=== PATIENT | female | born 1955 | race Caucasian/White ===

== ENCOUNTER 2017-11-05 01:07 | Inpatient (IN) | payer MEDICARE, OTHER ==
[2017-11-05] MEDS ORDERED: SODIUM CHLORIDE 0.9% 1,000 ML IV ONE (01:24)
[2017-11-05] MEDS ORDERED: HYDROmorphone 0.5 MG/0.5 ML SYRINGE IVP STA (01:24)
[2017-11-05] MEDS ORDERED: ONDANSETRON 4 MG/2 ML VIAL IVP STA (01:25)
[2017-11-05] MEDS ORDERED: ACETAMINOPHEN IV (For NPO) 1,000 MG in EMPTY BAG 1 BAG IVPB STA (01:30)
[2017-11-05] MEDS ORDERED: MORPHINE SULFATE 2 MG/ML SYRINGE IVP STA (01:49)
--- NOTE | 2017-11-05 01:50 | ED ---
Abdominal Pain HPI - General Chief Complaint: Abdominal Pain Stated Complaint: Abdominal Pain Time Seen by Provider: 11/05/17 01:11 Source: patient, EMS Mode of arrival: EMS Limitations: no limitations - History of Present Illness Initial Comments: Years O female transferred here from [facility] with the acute diverticulitis with perforation she presented with a fever off one or 1.8 complaining about abdominal pain she denies any other symptoms no headaches no neck stiffness no chest pain no shortness of breath she had some IV antibiotics at [facility] there was a Levaquin based on her ALLERGIES and now she had a fluid resuscitation as well as I reviewed the labs CBC is unremarkable with a slight elevation of white count compressive metabolic metabolic panel is normal lactate is 2.6 troponin is negative EKG didn't show any STEMI is. - Related Data Allergies Allergy/AdvReac Type Severity Reaction Status Date / Time amoxicillin Allergy Rash/Hives Verified 11/05/17 01:21 clavulanic acid Allergy Dyspnea Verified 11/05/17 01:21 [From Augmentin] latex Allergy Rash/Hives Verified 11/05/17 01:21 metronidazole [From Flagyl] Allergy Itching Verified 11/05/17 01:21 codeine AdvReac Rash/Hives Verified 11/05/17 01:21 Review of Systems ROS Statement: Those systems with pertinent positive or pertinent negative responses have been documented in the HPI. ROS Other: All systems not noted in ROS Statement are negative. Past Medical History Past Medical History: Atrial Fibrillation, Diabetes Mellitus, Hyperlipidemia History of Any Multi-Drug Resistant Organisms: None Reported Past Surgical History: Section, Hysterectomy, Joint Replacement, Orthopedic Surgery Additional Past Surgical History / Comment(s): bilateral knees, bilateral feet, right RC, bilateral carpal tunnel, left trigger finger Past Psychological History: Anxiety Smoking Status: Never smoker Past Alcohol Use History: None Reported Past Drug Use History: None Reported General Exam - General Exam Comments Initial Comments: General: The patient is awake and alert, in great distress, very anxious Skin: Skin is warm and dry and no rashes or lesions are noted. Eye: Pupils are equal, round and reactive to light, extra-ocular movements are intact; there is normal conjunctiva bilaterally. Ears, nose, mouth and throat: There are moist mucous membranes and no oral lesions. Neck: The neck is supple, there is no tenderness or JVD. Cardiovascular: There is a regular rate and rhythm. No murmur, rub or gallop is appreciated. Respiratory: To auscultation bilateral, no wheezing no rhonchi no distress respiratory geller noticed Gastrointestinal: Tender in the left lower quadrant area and tender in epigastric area as well Back: There is no tenderness to palpation in the midline. There is no obvious deformity. Musculoskeletal: Normal ROM, no tenderness, There is no pedal edema. There is no calf tenderness or swelling. No cords were appreciated. Neurological: CN II-XII intact, Cranial nerves III through XII are intact. There are no obvious motor or sensory deficits. Coordination appears grossly intact. Speech is normal. Psychiatric: Cooperative, appropriate mood & affect, normal judgment. Limitations: no limitations Course Vital Signs 11/05/17 11/05/17 11/05/17 01:11 01:50 02:00 Temperature 101.8 F H 101.5 F H 101.5 F H Pulse Rate 105 H 103 H 102 H Respiratory 20 20 18 Rate Blood Pressure 138/63 134/70 129/67 O2 Sat by Pulse 91 L 95 96 Oximetry Labs were reviewed, labs done at the transferring hospital, CBC, CMP are unremarkable lactate is 2.6 troponin is negative EKG was reviewed there was no STEMI. CT of the abdomen showed acute diverticulitis with a few air bubbles in the area., All this situation was discussed with the Dr. Gaona surgeon second ride fare collector today Dr. Martinez him wanted to do some imaging and imaging acute abdominal series has been ordered waiting for the report I will keep Dr. Gaona po service patient is in was about to the patient took her Xaralto yesterday Disposition Clinical Impression: Acute diverticulitis, Perforation bowel Disposition: ADMITTED IP TO THIS HOSP Condition: Good Referrals: Roque Howe MD [Primary Care Provider] - 1-2 days
[2017-11-05] MEDS: SODIUM CHLORIDE 0.9% 1,000 ML IV SCH ×3 (01:55→21:34)
[2017-11-05] MEDS ORDERED: NALOXONE 0.4 MG/ML 1 ML VIAL IV PRN (02:50)
[2017-11-05] MEDS ORDERED: ACETAMINOPHEN SUPPOSITORY 650 MG SUPP RECTAL PRN (02:50)
--- NOTE | 2017-11-05 03:02 | XR ---
EXAMINATION TYPE: XR abdomen acute w cxr DATE OF EXAM: 11/05/2017 COMPARISON: NONE HISTORY: Abdominal pain and fever TECHNIQUE: Chest x-ray and supine and upright abdomen FINDINGS: There is no heart failure nor confluent pneumonic infiltrate. Costophrenic angles are clear. There ar e chest leads. Bowel gas pattern is normal. There is no sign of intestinal obstruction or pneumoperitoneum. There is contrast-filled urinary bladder. There is no evidence of a mass. There are no pathologic calcificati ons over the kidneys. There is dilute contrast in the renal collecting systems. IMPRESSION: No active cardiopulmonary disease. Nonacute abdomen.
[2017-11-05] MEDS ORDERED: MEROPENEM 1 GM in SODIUM CHLORIDE 0.9% 100 ML IVPB STA (03:32)
[2017-11-05] MEDS ORDERED: LORazepam 1 MG TAB PO STA (04:45)
[2017-11-05 05:59] LABS: Glucose,Whole Blood 231 mg/dL (75-99)
[2017-11-05 06:18] VITALS: BMI 37.1
[2017-11-05 06:34] LABS: Anisocytosis Slight; Basophils % (A) 0 %; Eosinophils % (A) 0 %; HCT 32.2 % (34.0-46.0); HGB 9.9 gm/dL (11.4-16.0); Hypochromasia Marked; Lymphocytes # (A) 0.4 k/uL (1.0-4.8); Lymphocytes % (A) 4 %; MCH 20.7 pg (25.0-35.0); MCHC 30.7 g/dL (31.0-37.0); MCV 67.4 fL (80.0-100.0); Mean Platelet Volume 6.3; Microcytosis Marked; Monocytes # (A) 0.2 k/uL (0-1.0); Monocytes % (A) 3 %; Neutrophils # (A) 8.2 k/uL (1.3-7.7); Neutrophils % (A) 93 %; Platelet Count 158 k/uL (150-450); Poikilocytosis Slight; RBC 4.79 m/uL (3.80-5.40); RDW 17.7 % (11.5-15.5); WBC 8.8 k/uL (3.8-10.6)
[2017-11-05 06:56] LABS: Anion Gap 12 mmol/L; Blood Urea Nitrogen 13 mg/dL (7-17); Calcium 8.3 mg/dL (8.4-10.2); Carbon Dioxide 21 mmol/L (22-30); Chloride 108 mmol/L (98-107); Glucose 215 mg/dL (74-99); Magnesium 1.7 mg/dL (1.6-2.3); Phosphorus 3.2 mg/dL (2.5-4.5); Potassium 4.5 mmol/L (3.5-5.1); Sodium 141 mmol/L (137-145)
--- NOTE | 2017-11-05 07:15 | P.GSHP ---
History of Present Illness H&P Date: 11/05/17 Chief Complaint: Diverticulitis Patient transferred from [place] last night. She began experiencing some crampy vague lower abdominal pain on Sunday. Yesterday afternoon the pain became quite a bit more severe and went from 2-10. This is associated with nausea. She had a few loose stools that were nonbloody. Pain is better today down to a 5. She was started on antibiotics. Had an ALLERGIC reaction to Flagyl. CAT scan abdomen and pelvis was reviewed. There is evidence of diverticulitis involving the proximal to mid descending colon with a few small foci of extraluminal air bubbles. There is a small amount of free fluid within the abdomen as well. She was febrile last night at 101. White blood cell count mildly elevated. No tachycardia currently. No history of similar events. White blood cell count this morning normal at 8.8. Hemoglobin 9.9. Lactic acid normal - Review of Systems Comment: The patient denies any acute changes in vision or hearing, no dysphagia or odynophagia, no chest pain or shortness of breath, no dysuria or hematuria, no headache, no runny nose, no rectal bleeding or melena, no unexplained weight loss Past Medical History Past Medical History: Atrial Fibrillation, Diabetes Mellitus, Hyperlipidemia, Sleep Apnea/CPAP/BIPAP History of Any Multi-Drug Resistant Organisms: None Reported Past Surgical History: Section, Hysterectomy, Joint Replacement, Orthopedic Surgery Additional Past Surgical History / Comment(s): bilateral knees, bilateral feet, right RC, bilateral carpal tunnel, left trigger finger Past Anesthesia/Blood Transfusion Reactions: No Reported Reaction Past Psychological History: Anxiety Smoking Status: Former smoker Past Alcohol Use History: None Reported Past Drug Use History: None Reported Medications and Allergies Home Medications Medication Instructions Recorded Confirmed Type ALPRAZolam [Xanax] 0.5 mg PO QID 11/05/17 11/05/17 History Diltiazem HCl [Diltiazem 24Hr ER] 360 mg PO DAILY 11/05/17 11/05/17 History Ferrous Sulfate [Feosol] 325 mg PO PC-SUPPER 11/05/17 11/05/17 History Magnesium 250 mg PO PC-SUPPER 11/05/17 11/05/17 History Potassium Chloride ER [K-Dur 10] 10 meq PO HS 11/05/17 11/05/17 History Rivaroxaban [Xarelto] 20 mg PO PC-SUPPER 11/05/17 11/05/17 History Simvastatin [Zocor] 20 mg PO HS 11/05/17 11/05/17 History Torsemide [Demadex] 20 mg PO PC-SUPPER 11/05/17 11/05/17 History metFORMIN HCL [metFORMIN HCL ER] 1,000 mg PO BID-W/MEALS 11/05/17 11/05/17 History traZODone HCL [TraZODone HCl] 200 mg PO HS 11/05/17 11/05/17 History Allergies Allergy/AdvReac Type Severity Reaction Status Date / Time amoxicillin Allergy Rash/Hives Verified 11/05/17 01:21 clavulanic acid Allergy Dyspnea Verified 11/05/17 01:21 [From Augmentin] latex Allergy Rash/Hives Verified 11/05/17 01:21 metronidazole [From Flagyl] Allergy Itching Verified 11/05/17 01:21 codeine AdvReac Rash/Hives Verified 11/05/17 01:21 Surgical - Exam Vital Signs Temp Pulse Resp BP Pulse Ox 101.8 F H 105 H 20 138/63 91 L 11/05/17 01:11 11/05/17 01:11 11/05/17 01:11 11/05/17 01:11 11/05/17 01:11 Physical exam: General: Well-developed, well-nourished HEENT: Normocephalic, sclerae nonicteric Abdomen: Diffuse abdominal tenderness relatively mild slightly increased in the left midabdomen, nondistended, umbilical hernia noted Extremities: No edema Neuro: Alert and oriented Results - Labs 11/05/17 06:16 11/05/17 06:16 Abnormal Lab Results - Last 24 Hours (Table) 11/05/17 11/05/17 11/05/17 Range/Units 05:59 06:16 06:16 Hgb 9.9 L (11.4-16.0) gm/dL Hct 32.2 L (34.0-46.0) % MCV 67.4 L (80.0-100.0) fL MCH 20.7 L (25.0-35.0) pg MCHC 30.7 L (31.0-37.0) g/dL RDW 17.7 H (11.5-15.5) % Neutrophils # 8.2 H (1.3-7.7) k/uL Lymphocytes # 0.4 L (1.0-4.8) k/uL Chloride 108 H (98-107) mmol/L Carbon Dioxide 21 L (22-30) mmol/L Glucose 215 H (74-99) mg/dL POC Glucose (mg/dL) 231 H (75-99) mg/dL Calcium 8.3 L (8.4-10.2) mg/dL Diabetes panel 11/05/17 Range/Units 06:16 Sodium 141 (137-145) mmol/L Potassium 4.5 (3.5-5.1) mmol/L Chloride 108 H (98-107) mmol/L Carbon Dioxide 21 L (22-30) mmol/L BUN 13 (7-17) mg/dL Creatinine 0.80 (0.52-1.04) mg/dL Glucose 215 H (74-99) mg/dL Calcium 8.3 L (8.4-10.2) mg/dL Calcium panel 11/05/17 Range/Units 06:16 Calcium 8.3 L (8.4-10.2) mg/dL Phosphorus 3.2 (2.5-4.5) mg/dL Pituitary panel 11/05/17 Range/Units 06:16 Sodium 141 (137-145) mmol/L Potassium 4.5 (3.5-5.1) mmol/L Chloride 108 H (98-107) mmol/L Carbon Dioxide 21 L (22-30) mmol/L BUN 13 (7-17) mg/dL Creatinine 0.80 (0.52-1.04) mg/dL Glucose 215 H (74-99) mg/dL Calcium 8.3 L (8.4-10.2) mg/dL Adrenal panel 11/05/17 Range/Units 06:16 Sodium 141 (137-145) mmol/L Potassium 4.5 (3.5-5.1) mmol/L Chloride 108 H (98-107) mmol/L Carbon Dioxide 21 L (22-30) mmol/L BUN 13 (7-17) mg/dL Creatinine 0.80 (0.52-1.04) mg/dL Glucose 215 H (74-99) mg/dL Calcium 8.3 L (8.4-10.2) mg/dL Assessment and Plan (1) Acute diverticulitis Narrative/Plan: Patient's physical exam findings and CAT scan films consistent with an episode of diverticulitis that can be managed nonoperatively at this time. Continue broad-spectrum antibiotics. Await consults to infectious disease, critical care , and hospitalists. Keep nothing by mouth except for ice chips and popsicles for now. Repeat labs tomorrow. We'll follow closely. Current Visit: Yes Status: Acute Code(s): K57.92 - DVTRCLI OF INTEST, PART UNSP, W/O PERF OR ABSCESS W/O BLEED SNOMED Code(s): 751622069
[2017-11-05] MEDS: PANTOPRAZOLE 40 MG/10 ML VIAL IV SCH (08:08)
[2017-11-05] MEDS: HEPARIN SODIUM,PORCINE 5,000 UNIT/ML 1 ML VIAL SQ SCH ×3 (08:08→23:55)
[2017-11-05] MEDS: FAMOTIDINE 20 MG/2 ML VIAL IV SCH ×2 (08:08→21:34)
[2017-11-05] MEDS: INSULIN ASPART 100 UNIT/ML 1 ML 10 ML VIAL SQ SCH ×4 (08:10→21:33)
[2017-11-05 08:11] LABS: Glucose,Whole Blood 241 mg/dL (75-99)
[2017-11-05] MEDS: MORPHINE SULFATE 2 MG/ML SYRINGE IV PRN ×4 (09:09→21:20)
--- NOTE | 2017-11-05 10:07 | P.CNPUL ---
History of Present Illness Consult date: 11/05/17 Reason for consult: other Chief complaint: Abdominal pain, diverticulitis History of present illness: Pulmonary consult dated 11/05/2017 A 62-year-old female who was transferred out from [place]. She resides up in [place]. She apparently presented with abdominal pain and possible perforation. She's feeling much better now. Apparently she was seen by the surgeon and the surgeon thought she could move out of the ICU. She denies all other complaints other than abdominal pain. The patient apparently has a history of atrial fibrillation, diabetes, and hyperlipidemia. She's also had section hysterectomy joint replacement orthopedic procedures carpal tunnel and trigger finger. She does have a history of anxiety. She was a former smoker. She's been stable here in the intensive care unit from the respiratory status and hemodynamic status. She was transferred from [place] to the emergency room and up to the ICU. She was admitted on November 05. He is currently on O2 2 L by nasal cannula and a saline IV at 100 cc per hour. White count is 8.8 hemoglobin 9.9 hematocrit 32.2 and platelet count was normal. Sodium and potassium are normal. Chloride 108 CO2 21 and anion gap is normal at 12 noon and creatinine were 13 and 0.8. Acute abdominal series was essentially normal both in the area of the chest and abdomen. Review of Systems A 12 point review of systems is positive for abdominal pain, which is improved. The abdominal pain was primarily right lower quadrant. Past Medical History Past Medical History: Atrial Fibrillation, Diabetes Mellitus, Hyperlipidemia, Sleep Apnea/CPAP/BIPAP History of Any Multi-Drug Resistant Organisms: None Reported Past Surgical History: Section, Hysterectomy, Joint Replacement, Orthopedic Surgery Additional Past Surgical History / Comment(s): bilateral knees, bilateral feet, right RC, bilateral carpal tunnel, left trigger finger Past Anesthesia/Blood Transfusion Reactions: No Reported Reaction Past Psychological History: Anxiety Smoking Status: Former smoker Past Alcohol Use History: None Reported Past Drug Use History: None Reported Medications and Allergies Home Medications Medication Instructions Recorded Confirmed Type ALPRAZolam [Xanax] 0.5 mg PO QID 11/05/17 11/05/17 History Diltiazem HCl [Diltiazem 24Hr ER] 360 mg PO DAILY 11/05/17 11/05/17 History Ferrous Sulfate [Feosol] 325 mg PO PC-SUPPER 11/05/17 11/05/17 History Magnesium 250 mg PO PC-SUPPER 11/05/17 11/05/17 History Potassium Chloride ER [K-Dur 10] 10 meq PO HS 11/05/17 11/05/17 History Rivaroxaban [Xarelto] 20 mg PO PC-SUPPER 11/05/17 11/05/17 History Simvastatin [Zocor] 20 mg PO HS 11/05/17 11/05/17 History Torsemide [Demadex] 20 mg PO PC-SUPPER 11/05/17 11/05/17 History metFORMIN HCL [metFORMIN HCL ER] 1,000 mg PO BID-W/MEALS 11/05/17 11/05/17 History traZODone HCL [TraZODone HCl] 200 mg PO HS 11/05/17 11/05/17 History Allergies Allergy/AdvReac Type Severity Reaction Status Date / Time amoxicillin Allergy Rash/Hives Verified 11/05/17 01:21 clavulanic acid Allergy Dyspnea Verified 11/05/17 01:21 [From Augmentin] latex Allergy Rash/Hives Verified 11/05/17 01:21 metronidazole [From Flagyl] Allergy Itching Verified 11/05/17 01:21 codeine AdvReac Rash/Hives Verified 11/05/17 01:21 Physical Exam Osteopathic Statement: *. No significant issues noted on an osteopathic structural exam other than those noted in the History and Physical/Consult. Vitals: Vital Signs Temp Pulse Pulse Resp BP BP Pulse Ox 11/05/17 09:00 84 18 111/58 96 11/05/17 08:00 97.8 F 80 18 109/63 94 L 11/05/17 07:00 78 20 115/63 94 L 11/05/17 06:19 97.7 F 75 75 16 113/65 113/65 94 L 11/05/17 05:33 9707 F H 78 22 126/58 97 11/05/17 04:17 100.0 F H 87 22 139/64 96 11/05/17 03:23 99.5 F 93 19 138/61 96 11/05/17 02:00 101.5 F H 102 H 18 129/67 96 11/05/17 01:50 101.5 F H 103 H 20 134/70 95 11/05/17 01:11 101.8 F H 105 H 20 138/63 91 L Intake and Output 11/04/17 11/05/17 11/05/17 22:59 06:59 14:59 Intake Total 100 300 Output Total 300 Balance 100 0 Intake: IV 100 300 Sodium Chloride 0.9% 1, 100 300 000 ml @ 100 mls/hr IV . Q10H [facility] Rx#:[id number] Output: Urine 300 Other: Voiding Method Bedside Commode Weight 95.2 kg No acute distress, oriented 3. Nasal O2 in place. HEENT examination is grossly unremarkable. Mucous membranes are moist. No oral lesions. Neck supple. Full range of motion. No adenopathy thyromegaly or neck vein distention. Cardiovascular examination reveals regular rhythm rate. S1-S2 normal. No S3 or S4. No discernible murmur noted. Lungs reveal clear breath sounds. Her sounds are equal bilaterally. No adventitious lung sounds including wheezes rhonchi or crackles. Abdomen is relatively soft. Tenderness on palpation in the right lower quadrant. Mild abdominal distention. No masses. Extremities are intact. No cyanosis clubbing or edema. Skin is without rash or lesion. Neurologic examination is brief but nonfocal. Results - Laboratory Findings CBC and BMP: 11/05/17 06:16 11/05/17 06:16 Abnormal lab findings: Abnormal Labs 11/05/17 11/05/17 11/05/17 05:59 06:16 06:16 Hgb 9.9 L Hct 32.2 L MCV 67.4 L MCH 20.7 L MCHC 30.7 L RDW 17.7 H Neutrophils # 8.2 H Lymphocytes # 0.4 L Chloride 108 H Carbon Dioxide 21 L Glucose 215 H POC Glucose (mg/dL) 231 H Calcium 8.3 L 11/05/17 08:10 Hgb Hct MCV MCH MCHC RDW Neutrophils # Lymphocytes # Chloride Carbon Dioxide Glucose POC Glucose (mg/dL) 241 H Calcium - Diagnostic Findings Chest x-ray: report reviewed (Labs x-rays a medications are reviewed.), image reviewed Assessment and Plan Assessment: Assessment Acute diverticulitis History of atrial fibrillation History of diabetes mellitus History of hyperlipidemia Multiple orthopedic procedures History of anxiety Plan: Plan dated 11/05/2017 The patient's doing well. The patient's labs and x-rays are reviewed. Medications are reviewed. The patient can be transferred out to the general medical floor. She was seen and cleared by surgery. No additional recommendations are made. Time spent with patient more than 30 minutes. Time with Patient: Greater than 30
[2017-11-05] MEDS: MEROPENEM 1 GM in SODIUM CHLORIDE 0.9% 100 ML IVPB SCH ×3 (12:15→23:55)
[2017-11-05 12:20] LABS: Glucose,Whole Blood 266 mg/dL (75-99)
--- NOTE | 2017-11-05 12:38 | P.HPIM ---
History of Present Illness H&P Date: 11/05/17 Chief Complaint: Acute diverticulitis with possible perforation A 62-year-old female who was transferred out from [place]. She resides up in [place]. She apparently presented with abdominal pain and possible perforation. She's feeling much better now. Apparently she was seen by the surgeon and the surgeon thought she could move out of the ICU. She denies all other complaints other than abdominal pain. The patient apparently has a history of atrial fibrillation, diabetes, and hyperlipidemia. She's also had section hysterectomy joint replacement orthopedic procedures carpal tunnel and trigger finger. She does have a history of anxiety. She was a former smoker. She's been stable here in the intensive care unit from the respiratory status and hemodynamic status. She was transferred from [place] to the emergency room and up to the ICU. Review of Systems Constitutional: Reports chills, Reports fever, Denies night sweats Eyes: denies blurred vision, denies diplopia Ears, nose, mouth and throat: Denies dysphagia, Denies hoarseness, Denies nasal congestion Cardiovascular: Denies chest pain, Denies irregular heart beat, Denies shortness of breath Respiratory: Denies cough with sputum, Denies wheezing Gastrointestinal: Reports abdominal pain, Reports nausea, Denies constipation, Denies diarrhea, Denies vomiting Genitourinary: Denies dysuria, Denies hematuria, Denies nocturia Musculoskeletal: Denies frequent falls, Denies morning stiffness, Denies muscle cramps Neurological: Denies confusion, Denies double vision, Denies gait dysfunction, Denies numbness, Denies paresthesias, Denies weakness Psychiatric: Denies anxiety, Denies confusion Endocrine: Denies cold intolerance, Denies heat intolerance, Denies nocturia, Denies polydipsia, Denies polyuria Past Medical History Past Medical History: Atrial Fibrillation, Diabetes Mellitus, Hyperlipidemia, Sleep Apnea/CPAP/BIPAP History of Any Multi-Drug Resistant Organisms: None Reported Past Surgical History: Section, Hysterectomy, Joint Replacement, Orthopedic Surgery Additional Past Surgical History / Comment(s): bilateral knees, bilateral feet, right RC, bilateral carpal tunnel, left trigger finger Past Anesthesia/Blood Transfusion Reactions: No Reported Reaction Past Psychological History: Anxiety Smoking Status: Former smoker Past Alcohol Use History: None Reported Past Drug Use History: None Reported Medications and Allergies Home Medications Medication Instructions Recorded Confirmed Type ALPRAZolam [Xanax] 0.5 mg PO TID 11/05/17 11/05/17 History Diltiazem HCl [Diltiazem 24Hr ER] 360 mg PO DAILY 11/05/17 11/05/17 History Ferrous Sulfate [Feosol] 325 mg PO PC-SUPPER 11/05/17 11/05/17 History Magnesium 250 mg PO PC-SUPPER 11/05/17 11/05/17 History Potassium Chloride ER [K-Dur 10] 10 meq PO HS 11/05/17 11/05/17 History Rivaroxaban [Xarelto] 20 mg PO PC-SUPPER 11/05/17 11/05/17 History Simvastatin [Zocor] 20 mg PO HS 11/05/17 11/05/17 History Torsemide [Demadex] 20 mg PO PC-SUPPER 11/05/17 11/05/17 History metFORMIN HCL [metFORMIN HCL ER] 1,000 mg PO BID-W/MEALS 11/05/17 11/05/17 History traZODone HCL 200 mg PO HS 11/05/17 11/05/17 History Allergies Allergy/AdvReac Type Severity Reaction Status Date / Time amoxicillin Allergy Rash/Hives Verified 11/05/17 01:21 clavulanic acid Allergy Dyspnea Verified 11/05/17 01:21 [From Augmentin] latex Allergy Rash/Hives Verified 11/05/17 01:21 metronidazole [From Flagyl] Allergy Itching Verified 11/05/17 01:21 codeine AdvReac Rash/Hives Verified 11/05/17 01:21 Physical Exam Vitals: Vital Signs Temp Pulse Pulse Resp BP BP Pulse Ox 11/05/17 09:00 84 18 111/58 96 11/05/17 08:00 97.8 F 80 18 109/63 94 L 11/05/17 07:00 78 20 115/63 94 L 11/05/17 06:19 97.7 F 75 75 16 113/65 113/65 94 L 11/05/17 05:33 9707 F H 78 22 126/58 97 11/05/17 04:17 100.0 F H 87 22 139/64 96 11/05/17 03:23 99.5 F 93 19 138/61 96 11/05/17 02:00 101.5 F H 102 H 18 129/67 96 11/05/17 01:50 101.5 F H 103 H 20 134/70 95 11/05/17 01:11 101.8 F H 105 H 20 138/63 91 L Intake and Output 11/04/17 11/05/17 11/05/17 22:59 06:59 14:59 Intake Total 100 300 Output Total 300 Balance 100 0 Intake: IV 100 300 Sodium Chloride 0.9% 1, 100 300 000 ml @ 100 mls/hr IV . Q10H [facility] Rx#:[id number] Output: Urine 300 Other: Voiding Method Bedside Commode Weight 95.2 kg - Constitutional General appearance: Present: average body habitus, cooperative, no acute distress - EENT Eyes: Present: anicteric sclerae, EOMI, PERRLA, normal appearance ENT: Present: hearing grossly normal, normal oropharynx Ears: bilateral: normal - Neck Neck: Present: normal ROM. Absent: lymphadenopathy, rigidity, thyromegaly Carotids: negative: bruit present Thyroid: bilateral: normal size, negative: enlarged, nodule - Respiratory Respiratory: bilateral: CTA, negative: rales, rhonchi, wheezing - Cardiovascular Rhythm: regular Heart sounds: normal: S1, S2 Abnormal Heart Sounds: Absent: systolic murmur, diastolic murmur - Gastrointestinal General gastrointestinal: Present: normal bowel sounds, soft. Patient does have mild diffuse abdominal tenderness more so in right lower quadrant with minimal distention - Genitourinary Genitourinary Comment(s): deferred - Integumentary Integumentary: Present: normal turgor. Absent: jaundiced, rash, ulcer - Neurologic Neurologic: Present: CNII-XII intact. Absent: focal deficits - Musculoskeletal Musculoskeletal: Present: gait normal, strength equal bilaterally - Psychiatric Psychiatric: Present: A&O x's 3, appropriate affect, intact judgment & insight Results CBC & Chem 7: 11/05/17 06:16 11/05/17 06:16 Labs: Abnormal Lab Results - Last 24 Hours (Table) 11/05/17 11/05/17 11/05/17 Range/Units 05:59 06:16 06:16 Hgb 9.9 L (11.4-16.0) gm/dL Hct 32.2 L (34.0-46.0) % MCV 67.4 L (80.0-100.0) fL MCH 20.7 L (25.0-35.0) pg MCHC 30.7 L (31.0-37.0) g/dL RDW 17.7 H (11.5-15.5) % Neutrophils # 8.2 H (1.3-7.7) k/uL Lymphocytes # 0.4 L (1.0-4.8) k/uL Chloride 108 H (98-107) mmol/L Carbon Dioxide 21 L (22-30) mmol/L Glucose 215 H (74-99) mg/dL POC Glucose (mg/dL) 231 H (75-99) mg/dL Calcium 8.3 L (8.4-10.2) mg/dL 11/05/17 Range/Units 08:10 Hgb (11.4-16.0) gm/dL Hct (34.0-46.0) % MCV (80.0-100.0) fL MCH (25.0-35.0) pg MCHC (31.0-37.0) g/dL RDW (11.5-15.5) % Neutrophils # (1.3-7.7) k/uL Lymphocytes # (1.0-4.8) k/uL Chloride (98-107) mmol/L Carbon Dioxide (22-30) mmol/L Glucose (74-99) mg/dL POC Glucose (mg/dL) 241 H (75-99) mg/dL Calcium (8.4-10.2) mg/dL Thrombosis Risk Factor Assmnt - Choose All That Apply Any of the Below Risk Factors Present?: No Each Risk Factor Represents 2 Points: Age 61-74 years Other congenital or acquired thrombophilia - If yes, enter type in comment: No Thrombosis Risk Factor Assessment Total Risk Factor Score: 2 Thrombosis Risk Factor Assessment Level: Low Risk Assessment and Plan Assessment: 1. Acute diverticulitis with possible perforation - Patient was initially admitted to ICU for possible bowel perforation - Surgery and intensive care consultation is done - Patient was seen and evaluated by surgical team and bowel perforation is ruled out and has been cleared for possible transfer to general medical floor - Patient remains nothing by mouth for now except for ice chips and popsicles - We will hold off on oral medications 2. Hyperglycemia without acidosis/diabetes mellitus2 - Patient is on metformin at home; we will hold off while patient is in the hospital - We will continue with Accu-Cheks with insulin sliding scale protocol 3. Anemia; possibly chronic - We will monitor H&H closely along with stool occult blood and serum iron studies - We will transfuse if hemoglobin drops below 7 - Patient remains on Pepcid 20 mg IV daily for GI prophylaxis versus GI bleed 4. Chronic atrial fibrillation; rate controlled - Patient remains on Cardizem 360 mg daily along with anticoagulation with Xarelto 20 mg daily at bedtime 5. Sleep apnea; CPAP at home 6. Hyperlipidemia; patient's takes simvastatin at home; we will continue to hold his oral intake is established 7. DVT prophylaxis; heparin 5000 units subcu every 8 hours CODE STATUS; full code Time with Patient: Greater than 30
[2017-11-05 16:05] LABS: Glucose,Whole Blood 175 mg/dL (75-99)
[2017-11-05 18:35] LABS: Iron Saturation 18.09 (12.00-45.00)
[2017-11-05 21:32] LABS: Glucose,Whole Blood 89 mg/dL (75-99)
[2017-11-05] MEDS: traZODone HCL 100 MG TAB PO SCH (21:43)
[2017-11-05] MEDS: POTASSIUM CHLORIDE ER 10 MEQ TAB.ER.PRT PO SCH (21:43)
[2017-11-05] MEDS: ATORVASTATIN 10 MG TAB PO SCH (21:44)
[2017-11-05] MEDS: ALPRAZolam 0.5 MG TAB PO SCH (22:49)
[2017-11-05 23:26] LABS: Appearance,Urine Clear (Clear); Bilirubin,Urine Negative (Negative); Blood,Urine Negative (Negative); Color,Urine Yellow; Glucose,Urine (UA) Negative (Negative); Ketones,Urine Trace (Negative); Leukocyte Esterase,Urine Negative (Negative); Nitrite,Urine Negative (Negative); Protein,Urine Negative (Negative); Specific Gravity,Urine 1.012 (1.001-1.035); Urobilinogen,Urine <2.0 mg/dL (<2.0)
[2017-11-06] MEDS: MORPHINE SULFATE 2 MG/ML SYRINGE IV PRN ×4 (01:40→22:03)
[2017-11-06 07:07] LABS: Glucose,Whole Blood 88 mg/dL (75-99)
--- NOTE | 2017-11-06 07:45 | CONS ---
CONSULTATION DATE OF SERVICE: 11/05/2017 REASON FOR CONSULTATION: Acute mild diverticulitis with multiple antibiotic allergy. HISTORY OF PRESENT ILLNESS: The patient is a 62-year-old, female, who started having pain in the abdominal area for about 2 days. The pain has been mostly in the left lower abdominal area, more of a dull aching pain at times sharp that has gradually increased in severity and intensity to be almost 10 out of 10. The patient has felt nauseated, but no vomiting. The patient did have a bowel movement and thought the pain was improved after the bowel movement. However, the patient's pain continued to get worse for which the patient presented to the [facility] where the patient did have a CT of the abdomen and pelvis which did show diverticulosis involving the proximal to mid descending colon with small foci of extraluminal air bubbles. The patient did have fever of 101 degrees Fahrenheit at that facility. She was given IV antibiotic when she was infusing Flagyl, the patient states she did have itching around the IV site and this area becomes swollen, but no further itching was noticed or any rash or any difficulty in breathing, that was documented as possible allergic reaction. She did subsequently receive a dose of meropenem and was transferred to the ICU at the [facility]. Infectious Disease was consulted for further recommendation regarding antibiotic therapy. REVIEW OF SYSTEMS: CONSTITUTIONAL: Positive for weakness and fever. EYES: No complaint. ENT: No complaint. RESPIRATORY: No complaint. CARDIOVASCULAR: No complaint. GENITOURINARY: No complaint. GASTROINTESTINAL: As per HPI. MUSCULOSKELETAL: No complaints. INTEGUMENTARY: No complaint. PSYCHOLOGICAL: No complaint. ENDOCRINE: No complaint. NEUROLOGIC: No complaint. PAST MEDICAL HISTORY: Significant for atrial fibrillation, diabetes mellitus, hyperlipidemia, sleep apnea. PAST SURGICAL HISTORY: , hysterectomy, bilateral carpal tunnel release, left trigger finger release, bilateral knees. SOCIAL HISTORY: Denies smoking, drinking or any drug use. FAMILY HISTORY: No pertinent findings noticed. ALLERGIES: Allergies to AUGMENTIN with a rash, FLAGYL seem more of a local infiltration rather than a true allergy to me. MEDICATIONS: Medications currently include the patient is on Tylenol, Xanax, Lipitor, Cardizem, Pepcid, iron sulfate, heparin, NovoLog, meropenem, Narcan, Protonix, Demadex and Desyrel. PHYSICAL EXAMINATION: On examination, her blood pressure is 107/55 with a pulse of 66, temperature 97.9, T- max is 101.8. She is 95% on room air. General description is a middle-aged female lying in bed in no distress. No tachypnea or accessory muscle for respiration use. HEENT examination shows slight pallor. No scleral icterus. Oral mucous membrane is dry. No pharyngeal erythema or thrush. NECK: Trachea central. No thyromegaly. LUNGS: Unlabored breathing, clear to auscultation anteriorly. No wheeze or crackle. HEART: S1, S2. Regular rate and rhythm. ABDOMEN: Soft, mild tenderness in the left lower quadrant area. No guarding or rigidity. No organomegaly. EXTREMITIES: No edema of feet. SKIN EXAMINATION: No rash or mass palpable. NEUROLOGICAL: Patient is awake, alert, oriented x3. Mood and affect normal. LABS: Hemoglobin is 9.9 with white count of 8.8. BUN of 13, creatinine 0.80. DIAGNOSTIC IMPRESSION AND PLAN: 1. Patient with acute diverticulitis with microperforation in a patient who did have a fever of 101.8 degrees Fahrenheit. The likely organism to gram negative both aerobes and anaerobes. 2. The patient known to have AMOXICILLIN allergy that will limit number of antibiotics that would be safe to use; no history of anaphylaxis with AMOXICILLIN. The reaction to FLAGYL during this time with the patient looks like more local infiltration rather than a true allergy. PLAN: 1. We will keep the patient on meropenem 1 gram q.8 hours for now while waiting for the condition to stabilized. If the patient continues to improve, may transition her to oral and if the patient tolerates may be able to finish therapy with those antibiotics. 2. We will follow up on the clinical condition to further adjust her medication if needed. Thank you for this consultation. Will follow this patient along with you. MMODL / IJN: [id number] /
[2017-11-06 07:49] LABS: Anisocytosis Slight; Basophils % (A) 0 %; Eosinophils % (A) 0 %; HGB 8.7 gm/dL (11.4-16.0); Hypochromasia Marked; Lymphocytes # (A) 0.8 k/uL (1.0-4.8); Lymphocytes % (A) 10 %; MCH 20.1 pg (25.0-35.0); MCHC 29.9 g/dL (31.0-37.0); MCV 67.2 fL (80.0-100.0); Mean Platelet Volume 6.7; Microcytosis Marked; Monocytes # (A) 0.3 k/uL (0-1.0); Monocytes % (A) 4 %; Neutrophils # (A) 6.5 k/uL (1.3-7.7); Neutrophils % (A) 86 %; Platelet Count 172 k/uL (150-450); Poikilocytosis Slight; RBC 4.32 m/uL (3.80-5.40); RDW 17.5 % (11.5-15.5); WBC 7.6 k/uL (3.8-10.6)
[2017-11-06] MEDS: INSULIN ASPART 100 UNIT/ML 1 ML 10 ML VIAL SQ SCH ×4 (07:51→21:16)
[2017-11-06 08:14] LABS: ALT 25 U/L (9-52); AST 20 U/L (14-36); Albumin 2.9 g/dL (3.5-5.0); Alkaline Phosphatase 47 U/L (38-126); Anion Gap 10 mmol/L; Blood Urea Nitrogen 13 mg/dL (7-17); Calcium 8.7 mg/dL (8.4-10.2); Carbon Dioxide 23 mmol/L (22-30); Chloride 109 mmol/L (98-107); Glucose 84 mg/dL (74-99); Phosphorus 2.5 mg/dL (2.5-4.5); Potassium 4.3 mmol/L (3.5-5.1); Sodium 142 mmol/L (137-145); Total Bilirubin 0.6 mg/dL (0.2-1.3); Total Protein 5.5 g/dL (6.3-8.2)
[2017-11-06] MEDS: ALPRAZolam 0.5 MG TAB PO SCH ×3 (09:40→21:27)
[2017-11-06] MEDS: HEPARIN SODIUM,PORCINE 5,000 UNIT/ML 1 ML VIAL SQ SCH ×3 (09:41→23:38)
[2017-11-06] MEDS: SODIUM CHLORIDE 0.9% 1,000 ML IV SCH ×2 (09:44→21:27)
[2017-11-06] MEDS: FAMOTIDINE 20 MG/2 ML VIAL IV SCH (10:23)
[2017-11-06] MEDS: MEROPENEM 1 GM in SODIUM CHLORIDE 0.9% 100 ML IVPB SCH ×3 (10:23→23:38)
[2017-11-06] MEDS: PANTOPRAZOLE 40 MG/10 ML VIAL IV SCH (10:24)
--- NOTE | 2017-11-06 10:25 | P.PN ---
Subjective Progress Note Date: 11/06/17 Principal diagnosis: Diverticulitis Progress note dated 11/06/2017 This is a 62-year-old female that we saw in consultation on November 05. She was transferred down from [facility] with a possible perforation of the diverticuli. She came in with abdominal pain. She had a computed tomography scan of there. It was evaluated here by our surgeon. The patient was thought to primarily have diverticulitis. The patient has no active pulmonary issues. She does have a history of atrial fibrillation diabetes and hyperlipidemia. The patient's doing well otherwise. The patient was in the ICU but transferred out yesterday. No major issues today. No pulmonary issues today. Objective - Vital Signs Vital signs: Vital Signs Temp 98.6 F 11/06/17 07:32 Pulse 95 11/06/17 08:31 Resp 18 11/06/17 07:32 BP 110/68 11/06/17 07:32 Pulse Ox 90 L 11/06/17 07:32 Intake & Output 11/05/17 11/06/17 11/06/17 18:59 06:59 18:59 Intake Total 600 Output Total 600 550 Balance 0 -550 Intake: IV 600 Sodium Chloride 0.9% 1, 600 000 ml @ 100 mls/hr IV . Q10H [facility] Rx#:[id number] Output: Urine 600 550 Other: Voiding Method Bedside Commode Bedside Commode Bedside Commode - Exam No acute distress, oriented 3. HEENT examination is grossly unremarkable. Mucous membranes are moist. No oral lesions. Neck supple. Full range of motion. No adenopathy thyromegaly or neck vein distention. Cardiovascular examination reveals regular rhythm rate. S1-S2 normal. No S3 or S4. No discernible murmur noted. Lungs reveal clear breath sounds. Her sounds are equal bilaterally. No adventitious lung sounds including wheezes rhonchi or crackles. Abdomen is soft, with some mild tenderness diffusely. No masses. Not a surgical abdomen at this time. Bowel sounds are noted. Extremities are intact. No cyanosis clubbing or edema. Skin is without rash or lesion. Neurologic examination is brief but nonfocal. - Labs CBC & Chem 7: 11/06/17 07:17 11/06/17 07:17 Labs: Abnormal Lab Results - Last 24 Hours (Table) 11/05/17 11/05/17 11/05/17 Range/Units 12:18 14:45 16:02 Hgb (11.4-16.0) gm/dL Hct (34.0-46.0) % MCV (80.0-100.0) fL MCH (25.0-35.0) pg MCHC (31.0-37.0) g/dL RDW (11.5-15.5) % Lymphocytes # (1.0-4.8) k/uL Chloride (98-107) mmol/L POC Glucose (mg/dL) 266 H 175 H (75-99) mg/dL Total Protein (6.3-8.2) g/dL Albumin (3.5-5.0) g/dL Urine Ketones Trace H (Negative) 11/06/17 11/06/17 Range/Units 07:17 07:17 Hgb 8.7 L (11.4-16.0) gm/dL Hct 29.0 L (34.0-46.0) % MCV 67.2 L (80.0-100.0) fL MCH 20.1 L (25.0-35.0) pg MCHC 29.9 L (31.0-37.0) g/dL RDW 17.5 H (11.5-15.5) % Lymphocytes # 0.8 L (1.0-4.8) k/uL Chloride 109 H (98-107) mmol/L POC Glucose (mg/dL) (75-99) mg/dL Total Protein 5.5 L (6.3-8.2) g/dL Albumin 2.9 L (3.5-5.0) g/dL Urine Ketones (Negative) Microbiology - Last 24 Hours (Table) 11/05/17 01:40 Blood Culture - Preliminary Blood No Growth after 24 hours Assessment and Plan Assessment: Assessment Acute diverticulitis History of atrial fibrillation History of diabetes mellitus History of hyperlipidemia Multiple orthopedic procedures History of anxiety Plan: Plan dated 11/05/2017 The patient's doing well. The patient's labs and x-rays are reviewed. Medications are reviewed. The patient can be transferred out to the general medical floor. She was seen and cleared by surgery. No additional recommendations are made. Time spent with patient more than 30 minutes. Plan dated 11/06/2017 The patient is doing much better. The patient has no active pulmonary issues. She was in the unit primarily because she was thought to have diverticulitis with sepsis secondary to perforation of the diverticuli. That was not the case. Abdominal pain has improved. No coughing wheezing shortness of breath. No chest pain or chest discomfort. No fever or chills. Respiratory and hemodynamic status is stable. Time with Patient: Less than 30
[2017-11-06 11:56] LABS: Glucose,Whole Blood 101 mg/dL (75-99)
[2017-11-06] MEDS ORDERED: ACETAMINOPHEN IV (For NPO) 1,000 MG in EMPTY BAG 1 BAG IVPB STA (12:35)
--- NOTE | 2017-11-06 12:58 | P.PN ---
<Kathryn Paniaguapetra Powell - Last Filed: 11/06/17 12:20> Subjective Progress Note Date: 11/06/17 62-year-old female evaluated at the bedside patient reports feeling warm feverish chills temp was checked was noted to be 103. Patient states abdominal pain feels better this morning passing gas no stool no nausea no vomiting tolerating a clear liquid diet. abdomen is soft CAT scan of the abdomen pelvis was reviewed it showed small amount of free air within the abdomen.evidence of diverticulitis involving the proximal to mid descending colon abdomen obese mild tenderness to the right lower quadrant patient states radiates across nondistended bowel tones present the white count this morning 7.6 .hemoglobin 8.7sats currently on room air are 90%. Heart rate in the 80s to 90s Objective - Vital Signs Vital signs: Vital Signs Temp 98.6 F 11/06/17 07:32 Pulse 95 11/06/17 08:31 Resp 18 11/06/17 07:32 BP 110/68 11/06/17 07:32 Pulse Ox 90 L 11/06/17 07:32 Intake & Output 11/05/17 11/06/17 11/06/17 18:59 06:59 18:59 Intake Total 600 Output Total 600 550 Balance 0 -550 Intake: IV 600 Sodium Chloride 0.9% 1, 600 000 ml @ 100 mls/hr IV . Q10H [facility] Rx#:[id number] Output: Urine 600 550 Other: Voiding Method Bedside Commode Bedside Commode Bedside Commode - Exam physical exam 62-year-old female sitting up in bed states has mild tenderness to the abdominal wall slight improvement Lungs diminished at the bases no wheezing noted on room air sats are 90% no cough noted Heart S1-S2 audible regular Abdomen obese soft mild tenderness across the lower abdominal wall nondistended bowel tones present states passing gas no stool no nausea no vomiting Extremities no edema noted - Labs CBC & Chem 7: 11/06/17 07:17 11/06/17 07:17 Labs: Abnormal Lab Results - Last 24 Hours (Table) 11/05/17 11/05/17 11/05/17 Range/Units 12:18 14:45 16:02 Hgb (11.4-16.0) gm/dL Hct (34.0-46.0) % MCV (80.0-100.0) fL MCH (25.0-35.0) pg MCHC (31.0-37.0) g/dL RDW (11.5-15.5) % Lymphocytes # (1.0-4.8) k/uL Chloride (98-107) mmol/L POC Glucose (mg/dL) 266 H 175 H (75-99) mg/dL Total Protein (6.3-8.2) g/dL Albumin (3.5-5.0) g/dL Urine Ketones Trace H (Negative) 11/06/17 11/06/17 11/06/17 Range/Units 07:17 07:17 11:55 Hgb 8.7 L (11.4-16.0) gm/dL Hct 29.0 L (34.0-46.0) % MCV 67.2 L (80.0-100.0) fL MCH 20.1 L (25.0-35.0) pg MCHC 29.9 L (31.0-37.0) g/dL RDW 17.5 H (11.5-15.5) % Lymphocytes # 0.8 L (1.0-4.8) k/uL Chloride 109 H (98-107) mmol/L POC Glucose (mg/dL) 101 H (75-99) mg/dL Total Protein 5.5 L (6.3-8.2) g/dL Albumin 2.9 L (3.5-5.0) g/dL Urine Ketones (Negative) Microbiology - Last 24 Hours (Table) 11/05/17 01:40 Blood Culture - Preliminary Blood No Growth after 24 hours Assessment and Plan Assessment: impression present on admission diffuse abdominal pain suspect due to acute diverticulitis with microperforation Computed tomography scan of the abdomen pelvis consistent with the episode of diverticulitis Febrile obesity BMI 37 Multiple antibiotic ALLERGIES chronic atrial fibrillation on Xarelto on hold Sleep apnea with the use of CPAP therapy Plan Continue antibiotics per infectious diseases recommendations meropenem IV fluid as ordered DVT and GI prophylaxis Pain control Further surgical recommendations pending will follow with you Repeat labs in the morning The above impression and plan of care have been discussed and directed by signing physician. Sylvia Paniagua nurse practitioner acting as scribe for signing physician. <Valdemar Gaona - Last Filed: 11/06/17 17:21> Objective - Vital Signs Vital signs: Vital Signs Temp 101.7 F H 11/06/17 13:25 Pulse 110 H 11/06/17 12:15 Resp 18 11/06/17 12:15 BP 121/59 11/06/17 12:15 Pulse Ox 95 11/06/17 12:38 Intake & Output 11/05/17 11/06/17 11/06/17 18:59 06:59 18:59 Intake Total 600 Output Total 600 550 Balance 0 -550 Intake: IV 600 Sodium Chloride 0.9% 1, 600 000 ml @ 100 mls/hr IV . Q10H [facility] Rx#:[id number] Output: Urine 600 550 Other: Voiding Method Bedside Commode Bedside Commode Bedside Commode - Labs CBC & Chem 7: 11/06/17 07:17 11/06/17 07:17 Labs: Abnormal Lab Results - Last 24 Hours (Table) 11/05/17 11/06/17 11/06/17 Range/Units 14:45 07:17 07:17 Hgb 8.7 L (11.4-16.0) gm/dL Hct 29.0 L (34.0-46.0) % MCV 67.2 L (80.0-100.0) fL MCH 20.1 L (25.0-35.0) pg MCHC 29.9 L (31.0-37.0) g/dL RDW 17.5 H (11.5-15.5) % Lymphocytes # 0.8 L (1.0-4.8) k/uL Chloride 109 H (98-107) mmol/L POC Glucose (mg/dL) (75-99) mg/dL Total Protein 5.5 L (6.3-8.2) g/dL Albumin 2.9 L (3.5-5.0) g/dL Urine Ketones Trace H (Negative) 11/06/17 11/06/17 Range/Units 11:55 16:40 Hgb (11.4-16.0) gm/dL Hct (34.0-46.0) % MCV (80.0-100.0) fL MCH (25.0-35.0) pg MCHC (31.0-37.0) g/dL RDW (11.5-15.5) % Lymphocytes # (1.0-4.8) k/uL Chloride (98-107) mmol/L POC Glucose (mg/dL) 101 H 112 H (75-99) mg/dL Total Protein (6.3-8.2) g/dL Albumin (3.5-5.0) g/dL Urine Ketones (Negative) Microbiology - Last 24 Hours (Table) 11/05/17 01:40 Blood Culture - Preliminary Blood No Growth after 24 hours Assessment and Plan Assessment: As above. Patient actually states her pain is improved since yesterday. White blood cell count now normal. She did have a high fever of 102.9. Abdominal examination revealed mild diffuse tenderness increased in the left mid abdomen. Continue liquids only. Continue IV antibiotics per infectious disease. Will follow closely. (1) Acute diverticulitis Current Visit: Yes Status: Acute Code(s): K57.92 - DVTRCLI OF INTEST, PART UNSP, W/O PERF OR ABSCESS W/O BLEED SNOMED Code(s): 426880309
[2017-11-06] MEDS ORDERED: HEPARIN SODIUM,PORCINE 5,000 UNIT/ML 1 ML VIAL ONE (16:00)
[2017-11-06] MEDS ORDERED: ALPRAZolam 0.5 MG TAB ONE (16:00)
[2017-11-06 17:18] LABS: Glucose,Whole Blood 112 mg/dL (75-99)
[2017-11-06] MEDS: FERROUS SULFATE 325 MG TAB PO SCH (17:57)
[2017-11-06] MEDS: TORSEMIDE 20 MG TAB PO SCH (17:57)
[2017-11-06] MEDS: MAGNESIUM OXIDE 400 MG TAB PO SCH (17:58)
[2017-11-06 20:21] LABS: Glucose,Whole Blood 110 mg/dL (75-99)
[2017-11-06] MEDS: traZODone HCL 100 MG TAB PO SCH (21:27)
[2017-11-06] MEDS: ATORVASTATIN 10 MG TAB PO SCH (21:27)
[2017-11-06] MEDS: POTASSIUM CHLORIDE ER 10 MEQ TAB.ER.PRT PO SCH (21:27)
[2017-11-06] MEDS: DILTIAZEM CD 180 MG CAP.ER.24H PO SCH (22:01)
[2017-11-06] MEDS: ACETAMINOPHEN IV (For NPO) 1,000 MG in EMPTY BAG 1 BAG IVPB PRN (22:50)
--- NOTE | 2017-11-06 23:24 | PN ---
PROGRESS NOTE DATE OF SERVICE: 11/06/2017 REASON FOR FOLLOWUP: Diverticulitis with abscess. INTERVAL HISTORY: The patient started having fever again, spiking a fever of 101 degrees Fahrenheit. The patient denies having any chest pain or shortness of breath or cough. No worsening abdominal pain. No nausea, vomiting or any diarrhea. EXAMINATION: Blood pressure 114/67 with a pulse of 90, temperature 91.7. She is 95% on BiPAP. General description is middle-aged female lying in bed in no distress. RESPIRATORY SYSTEM: Unlabored breathing. Clear to auscultation anteriorly. HEART: S1, S2. Regular rate and rhythm. ABDOMEN: Soft. Minimal tenderness. LABS: Hemoglobin 8.7, white count 7.6 with a BUN of 13, creatinine 0.81. Blood culture has been negative so far. DIAGNOSTIC IMPRESSION AND PLAN: Patient admitted to hospital with sepsis versus diverticulitis with microperforation. The patient is currently on meropenem because of her AMOXICILLIN ALLERGY as well as consider for possible Flagyl, which is not a true allergy. In view of the new fever, would recommend obtaining a repeat CT to make sure the patient did not develop any complication or any abscess that may need to be drained further. Blood culture has been repeated. Plan of care will be discussed further with General Surgery. Continue supportive care before ordering the CT. MMODL / IJN: [id number] /
[2017-11-07] MEDS: MORPHINE SULFATE 2 MG/ML SYRINGE IV PRN ×4 (00:36→19:22)
[2017-11-07 06:54] LABS: Anisocytosis Slight; Basophils % (A) 0 %; Eosinophils % (A) 0 %; HCT 29.1 % (34.0-46.0); HGB 8.9 gm/dL (11.4-16.0); Hypochromasia Moderate; Lymphocytes # (A) 0.6 k/uL (1.0-4.8); Lymphocytes % (A) 10 %; MCHC 30.5 g/dL (31.0-37.0); MCV 65.7 fL (80.0-100.0); Mean Platelet Volume 6.5; Microcytosis Marked; Monocytes # (A) 0.3 k/uL (0-1.0); Monocytes % (A) 6 %; Neutrophils # (A) 4.4 k/uL (1.3-7.7); Neutrophils % (A) 82 %; Platelet Count 152 k/uL (150-450); Poikilocytosis Slight; RBC 4.43 m/uL (3.80-5.40); RDW 16.7 % (11.5-15.5); WBC 5.4 k/uL (3.8-10.6)
[2017-11-07 07:02] LABS: Glucose,Whole Blood 104 mg/dL (75-99)
[2017-11-07 07:08] LABS: Calcium 8.1 mg/dL (8.4-10.2); Magnesium 1.8 mg/dL (1.6-2.3); Phosphorus 2.7 mg/dL (2.5-4.5); Potassium 3.4 mmol/L (3.5-5.1)
[2017-11-07] MEDS: MEROPENEM 1 GM in SODIUM CHLORIDE 0.9% 100 ML IVPB SCH ×2 (08:36→15:57)
[2017-11-07] MEDS: ALPRAZolam 0.5 MG TAB PO SCH ×3 (08:37→21:36)
[2017-11-07] MEDS: PANTOPRAZOLE 40 MG/10 ML VIAL IV SCH (08:37)
[2017-11-07] MEDS: HEPARIN SODIUM,PORCINE 5,000 UNIT/ML 1 ML VIAL SQ SCH ×2 (08:37→16:54)
[2017-11-07] MEDS: SODIUM CHLORIDE 0.9% 1,000 ML IV SCH ×2 (08:37→16:04)
[2017-11-07] MEDS: INSULIN ASPART 100 UNIT/ML 1 ML 10 ML VIAL SQ SCH ×4 (08:43→21:36)
--- NOTE | 2017-11-07 09:12 | P.PN ---
Subjective Progress Note Date: 11/07/17 Principal diagnosis: Diverticulitis Patient once again states her pain is improving. Unfortunate she has had intermittent fevers during the day yesterday. Last fever at midnight last night. No tachycardia. Tolerating liquids. Objective - Vital Signs Vital signs: Vital Signs Temp 99.5 F 11/07/17 05:00 Pulse 89 11/07/17 08:30 Resp 17 11/07/17 08:30 BP 110/67 11/07/17 05:00 Pulse Ox 92 L 11/07/17 05:00 Intake & Output 11/06/17 11/07/17 11/07/17 18:59 06:59 18:59 Intake Total 725 1150 Balance 725 1150 Intake: IV 600 1150 Sodium Chloride 0.9% 1, 600 1150 000 ml @ 100 mls/hr IV . Q10H [facility] Rx#:[id number] Intake, IV Titration 125 Amount ACETAMINOPHEN IV (For NPO 125 ) 1,000 mg In Empty Bag 1 bag @ 400 mls/hr IVPB ONCE STA Rx#:[id number] Other: Voiding Method Toilet Toilet Toilet # Voids 2 - Exam Abdomen: Soft, nondistended, minimal tenderness diffusely - Labs CBC & Chem 7: 11/07/17 06:16 11/07/17 06:16 Labs: Abnormal Lab Results - Last 24 Hours (Table) 11/06/17 11/06/17 11/06/17 Range/Units 11:55 16:40 20:19 Hgb (11.4-16.0) gm/dL Hct (34.0-46.0) % MCV (80.0-100.0) fL MCH (25.0-35.0) pg MCHC (31.0-37.0) g/dL RDW (11.5-15.5) % Lymphocytes # (1.0-4.8) k/uL Potassium (3.5-5.1) mmol/L POC Glucose (mg/dL) 101 H 112 H 110 H (75-99) mg/dL Calcium (8.4-10.2) mg/dL 11/07/17 11/07/17 11/07/17 Range/Units 06:16 06:16 07:01 Hgb 8.9 L (11.4-16.0) gm/dL Hct 29.1 L (34.0-46.0) % MCV 65.7 L (80.0-100.0) fL MCH 20.0 L (25.0-35.0) pg MCHC 30.5 L (31.0-37.0) g/dL RDW 16.7 H (11.5-15.5) % Lymphocytes # 0.6 L (1.0-4.8) k/uL Potassium 3.4 L (3.5-5.1) mmol/L POC Glucose (mg/dL) 104 H (75-99) mg/dL Calcium 8.1 L (8.4-10.2) mg/dL Microbiology - Last 24 Hours (Table) 11/05/17 01:40 Blood Culture - Preliminary Blood No Growth after 48 hours Assessment and Plan (1) Acute diverticulitis Narrative/Plan: Patient with intermittent fevers and history of acute diverticulitis with microperforation. Agree with infectious disease. We'll order repeat CAT scan for tomorrow. We'll follow closely. Current Visit: Yes Status: Acute Code(s): K57.92 - DVTRCLI OF INTEST, PART UNSP, W/O PERF OR ABSCESS W/O BLEED SNOMED Code(s): 214879780
[2017-11-07 11:53] LABS: Glucose,Whole Blood 161 mg/dL (75-99)
[2017-11-07] MEDS: ACETAMINOPHEN IV (For NPO) 1,000 MG in EMPTY BAG 1 BAG IVPB PRN (16:00)
[2017-11-07 17:07] LABS: Glucose,Whole Blood 119 mg/dL (75-99)
[2017-11-07] MEDS: TORSEMIDE 20 MG TAB PO SCH (18:03)
[2017-11-07] MEDS: FERROUS SULFATE 325 MG TAB PO SCH (18:03)
[2017-11-07] MEDS: MAGNESIUM OXIDE 400 MG TAB PO SCH (18:03)
[2017-11-07 20:27] LABS: Glucose,Whole Blood 141 mg/dL (75-99)
[2017-11-07] MEDS: traZODone HCL 100 MG TAB PO SCH (21:36)
[2017-11-07] MEDS: ATORVASTATIN 10 MG TAB PO SCH (21:36)
[2017-11-07] MEDS: POTASSIUM CHLORIDE ER 10 MEQ TAB.ER.PRT PO SCH (21:36)
[2017-11-07] MEDS: DILTIAZEM CD 180 MG CAP.ER.24H PO SCH (21:36)
[2017-11-08] MEDS: HEPARIN SODIUM,PORCINE 5,000 UNIT/ML 1 ML VIAL SQ SCH ×3 (00:01→16:11)
[2017-11-08] MEDS: MEROPENEM 1 GM in SODIUM CHLORIDE 0.9% 100 ML IVPB SCH ×2 (00:01→08:34)
--- NOTE | 2017-11-08 00:01 | PN ---
PROGRESS NOTE DATE OF SERVICE: 11/07/2017. REASON FOR FOLLOWUP: Acute diverticulitis with perforation, possible abscess. INTERVAL HISTORY: The patient's overall fever pattern has improved. Temperature recorded this morning was 101.5. The patient denies any significant chest pain. Abdominal pain has slightly improved. No nausea, vomiting and no diarrhea. EXAMINATION: Blood pressure 96/52 with a pulse of 67, temperature 98.6. She is 92% on room air. General description is a middle-aged female lying in bed in no distress. RESPIRATORY SYSTEM: Unlabored breathing. Clear to auscultation anteriorly. HEART: S1, S2. Regular rate and rhythm. ABDOMEN: Soft, nondistended left lower quadrant area. No guarding. No rigidity. LABS: Hemoglobin 8.8, white count 5.4. BUN of 11, creatinine 0.92. Blood culture has been negative. DIAGNOSTIC IMPRESSION AND PLAN: Patient admitted to hospital with sepsis. The patient did have diverticulitis with a microperforation with a fever, did have concern for possible abscess. A CT has been ordered for tomorrow. Will keep the patient on meropenem because of MULTIPLE ANTIBIOTIC ALLERGIES. Continue supportive care. MMODL / IJN: [id number] /
--- NOTE | 2017-11-08 00:08 | P.PN ---
Subjective Progress Note Date: 11/06/17 Principal diagnosis: Acute diverticulitis with possible perforation A 62-year-old female who was transferred out from [place]. She resides up in [place]. She apparently presented with abdominal pain and possible perforation. She's feeling much better now. Apparently she was seen by the surgeon and the surgeon thought she could move out of the ICU. She denies all other complaints other than abdominal pain. The patient apparently has a history of atrial fibrillation, diabetes, and hyperlipidemia. She's also had section hysterectomy joint replacement orthopedic procedures carpal tunnel and trigger finger. She does have a history of anxiety. She was a former smoker. She's been stable here in the intensive care unit from the respiratory status and hemodynamic status. She was transferred from [place] to the emergency room and up to the ICU. 11/06/2017 Patient says that her abdominal pain is better today. Patient was started on clear liquids. Otherwise patient is being continued on antibiotics. Currently patient is in the general medical floor. General surgery and pulmonary is following. No fever no chills. No chest pain or shortness of breath. All other review of systems negative except the above Current medications reviewed Objective - Vital Signs Vital signs: Vital Signs Temp 101.7 F H 11/06/17 13:25 Pulse 95 11/06/17 08:31 Resp 18 11/06/17 07:32 BP 110/68 11/06/17 07:32 Pulse Ox 95 11/06/17 12:38 Intake & Output 11/05/17 11/06/17 11/06/17 18:59 06:59 18:59 Intake Total 600 Output Total 600 550 Balance 0 -550 Intake: IV 600 Sodium Chloride 0.9% 1, 600 000 ml @ 100 mls/hr IV . Q10H [facility] Rx#:[id number] Output: Urine 600 550 Other: Voiding Method Bedside Commode Bedside Commode Bedside Commode - Exam PHYSICAL EXAMINATION: Patient is lying in the bed comfortably, no acute distress, awake alert and oriented.. HEENT: Normocephalic. Neck is supple. Pupils reactive. Nostrils clear. Oral cavity is moist. Ears reveal no drainage. Neck reveals no JVD, carotid bruits, or thyromegaly. CHEST EXAMINATION: Trachea is central. Symmetrical expansion. Bibasilar diminished air entry. Lung hankins clear to auscultation and percussion. CARDIAC: Normal S1, S2 with no gallops. No murmurs ABDOMEN: Soft. Nontender. Bowel sounds normal. No organomegaly. No abdominal bruits. Extremities: reveal no edema. No clubbing or cyanosis Neurologically awake, alert, oriented x3 with well-coordinated movements. No focal deficits noted Skin: No rash or skin lesions. Psychiatric: Coperative. Nonsuicidal Musculoskeletal: No joint swelling or deformity. Normal range of motion. - Labs CBC & Chem 7: 11/07/17 06:16 11/07/17 06:16 Labs: Abnormal Lab Results - Last 24 Hours (Table) 11/05/17 11/05/17 11/06/17 Range/Units 14:45 16:02 07:17 Hgb 8.7 L (11.4-16.0) gm/dL Hct 29.0 L (34.0-46.0) % MCV 67.2 L (80.0-100.0) fL MCH 20.1 L (25.0-35.0) pg MCHC 29.9 L (31.0-37.0) g/dL RDW 17.5 H (11.5-15.5) % Lymphocytes # 0.8 L (1.0-4.8) k/uL Chloride (98-107) mmol/L POC Glucose (mg/dL) 175 H (75-99) mg/dL Total Protein (6.3-8.2) g/dL Albumin (3.5-5.0) g/dL Urine Ketones Trace H (Negative) 11/06/17 11/06/17 Range/Units 07:17 11:55 Hgb (11.4-16.0) gm/dL Hct (34.0-46.0) % MCV (80.0-100.0) fL MCH (25.0-35.0) pg MCHC (31.0-37.0) g/dL RDW (11.5-15.5) % Lymphocytes # (1.0-4.8) k/uL Chloride 109 H (98-107) mmol/L POC Glucose (mg/dL) 101 H (75-99) mg/dL Total Protein 5.5 L (6.3-8.2) g/dL Albumin 2.9 L (3.5-5.0) g/dL Urine Ketones (Negative) Microbiology - Last 24 Hours (Table) 11/05/17 01:40 Blood Culture - Preliminary Blood No Growth after 24 hours Assessment and Plan Assessment: Acute diverticulitis with possible perforation. Abdominal pain improved. Hyperglycemia due to uncontrolled diabetes type 2. On metformin at home Microcytic iron deficiency anemia Chronic atrial fibrillation. Rate controlled with Cardizem. On oral anticoagulant at home. Obstructive sleep apnea on CPAP at home Hyperlipidemia DVT prophylaxis with heparin subcu Plan: Patient will be continued on antibiotics in the form of meropenem. Pulmonary and ID and surgery is following. Oral anticoagulation has been held due to possible surgical intervention. Continue with Accu-Cheks and monitor H&H. Further recommendations based on the clinical course.
--- NOTE | 2017-11-08 00:10 | P.PN ---
Subjective Progress Note Date: 11/07/17 Principal diagnosis: Acute diverticulitis with possible perforation A 62-year-old female who was transferred out from [place]. She resides up in [place]. She apparently presented with abdominal pain and possible perforation. She's feeling much better now. Apparently she was seen by the surgeon and the surgeon thought she could move out of the ICU. She denies all other complaints other than abdominal pain. The patient apparently has a history of atrial fibrillation, diabetes, and hyperlipidemia. She's also had section hysterectomy joint replacement orthopedic procedures carpal tunnel and trigger finger. She does have a history of anxiety. She was a former smoker. She's been stable here in the intensive care unit from the respiratory status and hemodynamic status. She was transferred from [place] to the emergency room and up to the ICU. 11/06/2017 Patient says that her abdominal pain is better today. Patient was started on clear liquids. Otherwise patient is being continued on antibiotics. Currently patient is in the general medical floor. General surgery and pulmonary is following. No fever no chills. No chest pain or shortness of breath. 11/07/2017 Patient denied any worsening abdominal pain. Tolerating oral liquids. Patient developed fever last night. T-max 102.6. No diarrhea. No cough or sputum production. Planning for repeat CT abdomen if continues to be febrile. WBC 5.4. Currently afebrile. No chest pain or shortness of breath. All other review of systems negative except the above Current medications reviewed Objective - Vital Signs Vital signs: Vital Signs Temp 98.6 F 11/07/17 21:04 Pulse 67 11/07/17 21:04 Resp 16 11/07/17 21:04 BP 96/52 11/07/17 21:04 Pulse Ox 92 L 11/07/17 21:04 Intake & Output 11/07/17 11/07/17 11/08/17 06:59 18:59 06:59 Intake Total 1150 160 Output Total 550 Balance 1150 -390 Intake: IV 1150 Sodium Chloride 0.9% 1, 1150 000 ml @ 100 mls/hr IV . Q10H [facility] Rx#:[id number] Oral 160 Output: Urine 550 Other: Voiding Method Toilet Toilet Toilet # Voids 2 2 - Exam PHYSICAL EXAMINATION: Patient is lying in the bed comfortably, no acute distress, awake alert and oriented.. HEENT: Normocephalic. Neck is supple. Pupils reactive. Nostrils clear. Oral cavity is moist. Ears reveal no drainage. Neck reveals no JVD, carotid bruits, or thyromegaly. CHEST EXAMINATION: Trachea is central. Symmetrical expansion. Bibasilar diminished air entry. Lung hankins clear to auscultation and percussion. CARDIAC: Normal S1, S2 with no gallops. No murmurs ABDOMEN: Soft. Nontender. Bowel sounds normal. No organomegaly. No abdominal bruits. Extremities: reveal no edema. No clubbing or cyanosis Neurologically awake, alert, oriented x3 with well-coordinated movements. No focal deficits noted Skin: No rash or skin lesions. Psychiatric: Coperative. Nonsuicidal Musculoskeletal: No joint swelling or deformity. Normal range of motion. - Labs CBC & Chem 7: 11/07/17 06:16 11/07/17 06:16 Labs: Abnormal Lab Results - Last 24 Hours (Table) 11/07/17 11/07/17 11/07/17 Range/Units 06:16 06:16 07:01 Hgb 8.9 L (11.4-16.0) gm/dL Hct 29.1 L (34.0-46.0) % MCV 65.7 L (80.0-100.0) fL MCH 20.0 L (25.0-35.0) pg MCHC 30.5 L (31.0-37.0) g/dL RDW 16.7 H (11.5-15.5) % Lymphocytes # 0.6 L (1.0-4.8) k/uL Potassium 3.4 L (3.5-5.1) mmol/L POC Glucose (mg/dL) 104 H (75-99) mg/dL Calcium 8.1 L (8.4-10.2) mg/dL 11/07/17 11/07/17 11/07/17 Range/Units 11:52 17:05 20:24 Hgb (11.4-16.0) gm/dL Hct (34.0-46.0) % MCV (80.0-100.0) fL MCH (25.0-35.0) pg MCHC (31.0-37.0) g/dL RDW (11.5-15.5) % Lymphocytes # (1.0-4.8) k/uL Potassium (3.5-5.1) mmol/L POC Glucose (mg/dL) 161 H 119 H 141 H (75-99) mg/dL Calcium (8.4-10.2) mg/dL Microbiology - Last 24 Hours (Table) 11/06/17 13:45 Blood Culture - Preliminary Blood No Growth after 24 hours 11/06/17 13:25 Blood Culture - Preliminary Blood No Growth after 24 hours 11/05/17 01:40 Blood Culture - Preliminary Blood No Growth after 48 hours Assessment and Plan Assessment: Acute diverticulitis with possible perforation. Abdominal pain improved. Hyperglycemia due to uncontrolled diabetes type 2. On metformin at home Microcytic iron deficiency anemia Chronic atrial fibrillation. Rate controlled with Cardizem. On oral anticoagulant at home. Obstructive sleep apnea on CPAP at home Hyperlipidemia DVT prophylaxis with heparin subcu Plan: Patient will be continued on antibiotics in the form of meropenem. Pulmonary and ID and surgery is following. Oral anticoagulation has been held due to possible surgical intervention. Continue with Accu-Cheks and monitor H&H. Further recommendations based on the clinical course. Time with Patient: Greater than 30
[2017-11-08] MEDS: SODIUM CHLORIDE 0.9% 1,000 ML IV SCH ×2 (03:44→12:59)
[2017-11-08] MEDS ORDERED: ACETAMINOPHEN TAB 325 MG TAB PO STA (03:57)
[2017-11-08] MEDS: MORPHINE SULFATE 2 MG/ML SYRINGE IV PRN ×3 (05:24→20:11)
[2017-11-08 06:51] LABS: Anisocytosis Slight; Basophils % (A) 0 %; Eosinophils % (A) 1 %; HCT 27.3 % (34.0-46.0); HGB 8.4 gm/dL (11.4-16.0); Hypochromasia Moderate; Lymphocytes # (A) 0.6 k/uL (1.0-4.8); Lymphocytes % (A) 13 %; MCHC 30.7 g/dL (31.0-37.0); MCV 65.3 fL (80.0-100.0); Mean Platelet Volume 6.3; Microcytosis Marked; Monocytes # (A) 0.2 k/uL (0-1.0); Monocytes % (A) 5 %; Neutrophils # (A) 3.6 k/uL (1.3-7.7); Neutrophils % (A) 79 %; Platelet Count 171 k/uL (150-450); Poikilocytosis Slight; RBC 4.18 m/uL (3.80-5.40); RDW 16.9 % (11.5-15.5); WBC 4.5 k/uL (3.8-10.6)
[2017-11-08 07:08] LABS: Glucose,Whole Blood 117 mg/dL (75-99)
[2017-11-08 07:08] LABS: Anion Gap 12 mmol/L; Blood Urea Nitrogen 8 mg/dL (7-17); Calcium 7.7 mg/dL (8.4-10.2); Carbon Dioxide 26 mmol/L (22-30); Chloride 105 mmol/L (98-107); Glucose 108 mg/dL (74-99); Phosphorus 3.1 mg/dL (2.5-4.5); Potassium 3.1 mmol/L (3.5-5.1); Sodium 143 mmol/L (137-145)
[2017-11-08] MEDS: IOPAMIDOL-300 CONTRAST 30 ML VIAL (ORAL USE) PO PRN ×2 (08:01→08:52)
[2017-11-08] MEDS: ALPRAZolam 0.5 MG TAB PO SCH ×3 (08:01→21:36)
[2017-11-08] MEDS: INSULIN ASPART 100 UNIT/ML 1 ML 10 ML VIAL SQ SCH ×4 (08:14→21:38)
[2017-11-08] MEDS: PANTOPRAZOLE 40 MG/10 ML VIAL IV SCH (08:36)
--- NOTE | 2017-11-08 09:37 | P.PN ---
<SivaSylvia M - Last Filed: 11/08/17 09:30> Subjective Progress Note Date: 11/08/17 62-year-old female seen and examined at bedside. Patient reports continues to have diffuse abdominal pain right lower quadrant radiating across. Patient states had a bowel movement last night. No nausea no vomiting. Temp this morning at 5 AM 101.1. Current temp 97.1. The white count 4.5 hemoglobin 8.4 The blood culture showed no growth to date patients being followed by infectious disease currently on meropenem. Being treated for acute diverticulitis Objective - Vital Signs Vital signs: Vital Signs Temp 97.1 F L 11/08/17 08:12 Pulse 69 11/08/17 08:12 Resp 18 11/08/17 08:12 BP 110/59 11/08/17 08:12 Pulse Ox 93 L 11/08/17 08:12 Intake & Output 11/07/17 11/08/17 11/08/17 18:59 06:59 18:59 Intake Total 160 1150 Output Total 550 Balance -390 1150 Intake: IV 1150 Sodium Chloride 0.9% 1, 1150 000 ml @ 100 mls/hr IV . Q10H [facility] Rx#:[id number] Oral 160 Output: Urine 550 Other: Voiding Method Toilet Toilet # Voids 2 1 - Exam Physical exam 62-year-old female sitting up in bed reports having mild right lower quadrant radiates across Lungs essentially clear on room air sats are 93% Heart S1-S2 audible regular Abdomen obese soft reports diffuse tenderness across the abdominal wall greater than the right lower quadrant states it's improving nondistended bowel tones present states passing gas bowel movement last night Extremities no edema noted - Labs CBC & Chem 7: 11/08/17 06:29 11/08/17 06:29 Labs: Abnormal Lab Results - Last 24 Hours (Table) 11/07/17 11/07/17 11/07/17 Range/Units 11:52 17:05 20:24 Hgb (11.4-16.0) gm/dL Hct (34.0-46.0) % MCV (80.0-100.0) fL MCH (25.0-35.0) pg MCHC (31.0-37.0) g/dL RDW (11.5-15.5) % Lymphocytes # (1.0-4.8) k/uL Potassium (3.5-5.1) mmol/L Glucose (74-99) mg/dL POC Glucose (mg/dL) 161 H 119 H 141 H (75-99) mg/dL Calcium (8.4-10.2) mg/dL 11/08/17 11/08/17 11/08/17 Range/Units 06:29 06:29 07:03 Hgb 8.4 L (11.4-16.0) gm/dL Hct 27.3 L (34.0-46.0) % MCV 65.3 L (80.0-100.0) fL MCH 20.0 L (25.0-35.0) pg MCHC 30.7 L (31.0-37.0) g/dL RDW 16.9 H (11.5-15.5) % Lymphocytes # 0.6 L (1.0-4.8) k/uL Potassium 3.1 L (3.5-5.1) mmol/L Glucose 108 H (74-99) mg/dL POC Glucose (mg/dL) 117 H (75-99) mg/dL Calcium 7.7 L (8.4-10.2) mg/dL Microbiology - Last 24 Hours (Table) 11/05/17 01:40 Blood Culture - Preliminary Blood No Growth after 72 hours 11/06/17 13:45 Blood Culture - Preliminary Blood No Growth after 24 hours 11/06/17 13:25 Blood Culture - Preliminary Blood No Growth after 24 hours Assessment and Plan Assessment: impression present on admission diffuse abdominal pain suspect due to acute diverticulitis with microperforation Computed tomography scan of the abdomen pelvis consistent with the episode of diverticulitis Febrile obesity BMI 37 Multiple antibiotic ALLERGIES chronic atrial fibrillation on Xarelto on hold Sleep apnea with the use of CPAP therapy Persistent episodes intermittent fever Plan Follow up on the pending computed tomography scan abdomen and pelvis with contrast to be done this morning Continue antibiotics per infectious diseases recommendations meropenem IV fluid as ordered DVT and GI prophylaxis Pain control Further surgical recommendations pending will follow with you Repeat labs in the morning The above impression and plan of care have been discussed and directed by signing physician. Sylvia Paniagua nurse practitioner acting as scribe for signing physician. <Valdemar Gaona - Last Filed: 11/08/17 13:22> Objective - Vital Signs Vital signs: Vital Signs Temp 97.1 F L 11/08/17 08:12 Pulse 69 11/08/17 08:12 Resp 18 11/08/17 08:12 BP 110/59 11/08/17 08:12 Pulse Ox 93 L 11/08/17 08:12 Intake & Output 11/07/17 11/08/17 11/08/17 18:59 06:59 18:59 Intake Total 160 1150 Output Total 550 Balance -390 1150 Intake: IV 1150 Sodium Chloride 0.9% 1, 1150 000 ml @ 100 mls/hr IV . Q10H E[facility]RA Rx#:[id number] Oral 160 Output: Urine 550 Other: Voiding Method Toilet Toilet Toilet # Voids 2 1 - Labs CBC & Chem 7: 11/08/17 06:29 11/08/17 06:29 Labs: Abnormal Lab Results - Last 24 Hours (Table) 11/07/17 11/07/17 11/08/17 Range/Units 17:05 20:24 06:29 Hgb 8.4 L (11.4-16.0) gm/dL Hct 27.3 L (34.0-46.0) % MCV 65.3 L (80.0-100.0) fL MCH 20.0 L (25.0-35.0) pg MCHC 30.7 L (31.0-37.0) g/dL RDW 16.9 H (11.5-15.5) % Lymphocytes # 0.6 L (1.0-4.8) k/uL Potassium (3.5-5.1) mmol/L Glucose (74-99) mg/dL POC Glucose (mg/dL) 119 H 141 H (75-99) mg/dL Calcium (8.4-10.2) mg/dL 11/08/17 11/08/17 11/08/17 Range/Units 06:29 07:03 11:25 Hgb (11.4-16.0) gm/dL Hct (34.0-46.0) % MCV (80.0-100.0) fL MCH (25.0-35.0) pg MCHC (31.0-37.0) g/dL RDW (11.5-15.5) % Lymphocytes # (1.0-4.8) k/uL Potassium 3.1 L (3.5-5.1) mmol/L Glucose 108 H (74-99) mg/dL POC Glucose (mg/dL) 117 H 122 H (75-99) mg/dL Calcium 7.7 L (8.4-10.2) mg/dL Microbiology - Last 24 Hours (Table) 11/05/17 01:40 Blood Culture - Preliminary Blood No Growth after 72 hours 11/06/17 13:45 Blood Culture - Preliminary Blood No Growth after 24 hours 11/06/17 13:25 Blood Culture - Preliminary Blood No Growth after 24 hours Assessment and Plan Assessment: As above. CAT scan reviewed. Case also discussed with infectious disease. The punctate foci of air adjacent to the splenic flexure is slightly larger now measuring about 1-1.5 cm in diameter. The overall degree of inflammatory changes seems improved however. Patient states her pain is a 2 out of 10. She feels she has made progress today with improvement in her symptoms. Patient does have mild tenderness diffusely slightly increased today in the left upper quadrant. Options again discussed with the patient. Will advance diet at this time. Continue broad-spectrum antibiotics per infectious disease. Reevaluate tomorrow. (1) Acute diverticulitis Current Visit: Yes Status: Acute Code(s): K57.92 - DVTRCLI OF INTEST, PART UNSP, W/O PERF OR ABSCESS W/O BLEED SNOMED Code(s): 943329652
--- NOTE | 2017-11-08 11:08 | CT ---
EXAMINATION TYPE: CT abdomen pelvis w con DATE OF EXAM: 11/08/2017 HISTORY: Fevers, abdominal pain. CT DLP: 1869.8mGycm Automated Exposure Control for Dose Reduction was Utilized. CONTRAST: CT scan of the abdomen and pelvis is performed with IV Contrast, patient injected with 100 mL of Isov ue M300. COMPARISON: 11/04/2017 outside imaging. FINDINGS: LUNG BASES: There is a trace right pleural effusion and right basilar airspace disease, likely atelec tasis. LIVER/GB: Hepatic parenchyma is diffusely hypoattenuated in comparison to that of the spleen, most co mmonly seen in hepatic steatosis. This finding limits evaluation for hepatic masses. No gross evidenc e of hepatic mass is seen. No intrahepatic biliary ductal dilatation. Cholelithiasis is also present. PANCREAS: No significant abnormality is seen. SPLEEN: The spleen is enlarged measuring 1.5 cm in craniocaudal dimension. ADRENALS: No significant abnormality is seen. KIDNEYS: No significant abnormality is seen. BOWEL: Again there is pronounced pericolonic fat stranding of the splenic flexure and descending colo n with perforation and small fluid collections along the mesenteric border of the descending colon wi th the first predominantly containing air measuring up to 1.3 x 2.1 cm and 2 additional smaller fluid collections measuring 0.6 x 0.9 cm and 1.0 x 1.2 cm on series 3 image 49. There is adjacent fascial thickening of the lateral conal fascia extending into the pelvis. Inflammatory fat stranding extends to the psoas muscle on coronal imaging. Degree of bowel wall thickening has improved. Adjacent small bowel thickening is likely reactive on series 3 image 54 with matting of small bowel loops from the a djacent inflammatory change. No dilatation of large or small bowel is seen. Oral contrast extends thr ough the small bowel into the large bowel and rectum. UTERUS/ADNEXA: Uterus appears surgically absent. Surgical clips are noted along the left adnexa. LYMPH NODES: No greater than 1cm abdominal or pelvic lymph nodes are appreciated. Right paraesophagea l prominent lymph node measures 7 mm in short axis. Few prominent celiac axis lymph nodes are seen gardner ch as on series 3 image 26 measuring up to 9 mm in short axis. OSSEOUS STRUCTURES: No significant abnormality is seen. OTHER: Right paracentral periumbilical fat filled hernia is present with mild surrounding inflammator y change localized to the subcutaneous tissues. Abdominal aorta is of normal course and caliber with mild calcific atheromatous changes. Urinary bladder is decompressed and incompletely evaluated IMPRESSION: 1. Redemonstration of complicated acute splenic flexure and descending colonic diverticulitis with fo petar perforation and development of small pericolonic abscesses along the mesenteric border. The large st although measures up to 1.3 x 2.1 cm predominately contains air and only a scant amount of fluid. Two other additional smaller abscesses measure only 0.6 x 0.9 cm and 1.0 x 1.2 cm. Degree of haustral thickening has decreased in the interim and pericolonic inflammatory fat stranding is similar to the prior. 2. Reactive left mid abdominal small bowel wall thickening. No evidence of obstruction. 3. Few prominent celiac axis lymph nodes are likely reactive. Right paraesophageal prominent lymph no de is nonspecific. 4. Periumbilical right paracentral fat filled umbilical hernia with minimal surrounding inflammatory fat stranding that could relate to omental infarct. No adjacent small or large bowel. 5. Splenomegaly, hepatic steatosis, trace right pleural effusion and probable right basilar atelectas is.
[2017-11-08 11:35] LABS: Glucose,Whole Blood 122 mg/dL (75-99)
[2017-11-08] MEDS ORDERED: Potassium Replacement Protocol 1 EACH MISC MISCELLANE PRN (11:45)
[2017-11-08] MEDS ORDERED: HYDROcodone/APAP 5-325MG 1 EACH TAB PO PRN (12:55)
[2017-11-08] MEDS: POTASSIUM CHLORIDE ER 20 MEQ TAB.ER PO SCH ×2 (12:59→13:30)
--- NOTE | 2017-11-08 15:21 | P.PN ---
Subjective Progress Note Date: 11/08/17 Progress note being dictated for Dr. Turner. mitzy diverticulitis with possible perforation A 62-year-old female who was transferred out from [place]. She resides up in [place]. She apparently presented with abdominal pain and possible perforation. She's feeling much better now. Apparently she was seen by the surgeon and the surgeon thought she could move out of the ICU. She denies all other complaints other than abdominal pain. The patient apparently has a history of atrial fibrillation, diabetes, and hyperlipidemia. She's also had section hysterectomy joint replacement orthopedic procedures carpal tunnel and trigger finger. She does have a history of anxiety. She was a former smoker. She's been stable here in the intensive care unit from the respiratory status and hemodynamic status. She was transferred from [place] to the emergency room and up to the ICU. 11/06/2017 Patient says that her abdominal pain is better today. Patient was started on clear liquids. Otherwise patient is being continued on antibiotics. Currently patient is in the general medical floor. General surgery and pulmonary is following. No fever no chills. No chest pain or shortness of breath. 11/07/2017 Patient denied any worsening abdominal pain. Tolerating oral liquids. Patient developed fever last night. T-max 102.6. No diarrhea. No cough or sputum production. Planning for repeat CT abdomen if continues to be febrile. WBC 5.4. Currently afebrile. No chest pain or shortness of breath. All other review of systems negative except the above Current medications reviewed 11/08/2017 bowel movement last night. Diffuse abdominal pain, mid -epigastric radiating to right lower quadrant. Denies nausea or vomiting. T-max 102.4. WBC 4.5. Preliminary blood cultures reporting no growth .Maintained on IV antibiotics of Merrem as per infectious disease. CT of abdomen and pelvis completed, results pending. Potassium 3.1. Objective - Vital Signs Vital signs: Vital Signs Temp 97.1 F L 11/08/17 08:12 Pulse 69 11/08/17 08:12 Resp 18 11/08/17 08:12 BP 110/59 11/08/17 08:12 Pulse Ox 93 L 11/08/17 08:12 Intake & Output 11/07/17 11/08/17 11/08/17 18:59 06:59 18:59 Intake Total 160 1150 Output Total 550 Balance -390 1150 Intake: IV 1150 Sodium Chloride 0.9% 1, 1150 000 ml @ 100 mls/hr IV . Q10H [facility] Rx#:[id number] Oral 160 Output: Urine 550 Other: Voiding Method Toilet Toilet # Voids 2 1 - Exam Patient is sitting up in the bed comfortably, no acute distress, awake alert and oriented.. HEENT: Normocephalic. Neck is supple. Pupils reactive. Nostrils clear. Oral cavity is moist. Ears reveal no drainage. Neck reveals no JVD, carotid bruits, or thyromegaly. CHEST EXAMINATION: Trachea is central. Symmetrical expansion. Bibasilar diminished air entry. Lung hankins clear to auscultation and percussion. CARDIAC: Normal S1, S2 with no gallops. No murmurs ABDOMEN: Soft. Diffuse mid epigastric, right lower quadrant tenderness. Bowel sounds normal. No organomegaly. No abdominal bruits. Extremities: reveal no edema. No clubbing or cyanosis Neurologically awake, alert, oriented x3 with well-coordinated movements. No focal deficits noted Skin: No rash or skin lesions. Psychiatric: Coperative. Nonsuicidal Musculoskeletal: No joint swelling or deformity. Normal range of motion. - Labs CBC & Chem 7: 11/08/17 06:29 11/08/17 06:29 Labs: Abnormal Lab Results - Last 24 Hours (Table) 11/07/17 11/07/17 11/07/17 Range/Units 11:52 17:05 20:24 Hgb (11.4-16.0) gm/dL Hct (34.0-46.0) % MCV (80.0-100.0) fL MCH (25.0-35.0) pg MCHC (31.0-37.0) g/dL RDW (11.5-15.5) % Lymphocytes # (1.0-4.8) k/uL Potassium (3.5-5.1) mmol/L Glucose (74-99) mg/dL POC Glucose (mg/dL) 161 H 119 H 141 H (75-99) mg/dL Calcium (8.4-10.2) mg/dL 11/08/17 11/08/17 11/08/17 Range/Units 06:29 06:29 07:03 Hgb 8.4 L (11.4-16.0) gm/dL Hct 27.3 L (34.0-46.0) % MCV 65.3 L (80.0-100.0) fL MCH 20.0 L (25.0-35.0) pg MCHC 30.7 L (31.0-37.0) g/dL RDW 16.9 H (11.5-15.5) % Lymphocytes # 0.6 L (1.0-4.8) k/uL Potassium 3.1 L (3.5-5.1) mmol/L Glucose 108 H (74-99) mg/dL POC Glucose (mg/dL) 117 H (75-99) mg/dL Calcium 7.7 L (8.4-10.2) mg/dL Microbiology - Last 24 Hours (Table) 11/05/17 01:40 Blood Culture - Preliminary Blood No Growth after 72 hours 11/06/17 13:45 Blood Culture - Preliminary Blood No Growth after 24 hours 11/06/17 13:25 Blood Culture - Preliminary Blood No Growth after 24 hours Assessment and Plan Assessment: Acute diverticulitis with microperforation Hyperglycemia due to uncontrolled diabetes type 2. On metformin at home Microcytic iron deficiency anemia Chronic atrial fibrillation. Rate controlled with Cardizem. On oral anticoagulant at home. Obstructive sleep apnea on CPAP at home Hyperlipidemia DVT prophylaxis with heparin subcu Plan: Continue on current medication regime ,monitoring and symptomatic treatment. Potassium replacement protocol ordered. Close monitoring of electrolytes, with repeat labs ordered for a.m. Follow-up CT abdomen and pelvis , results pending with potential exploratory laparotomy.Patient will be continued on antibiotics in the form of meropenem. Oral anticoagulation has been held due to possible surgical intervention. Continue with Accu-Cheks and monitor H&H. Further recommendations based on the clinical course. The impression and plan of care has been dictated as directed. : I performed a history and examination of this patient, discussed the same with the dictator. I agree with the dictator's note ,documented as a scribe. Any additional findings or plans will be noted.
[2017-11-08] MEDS: FERROUS SULFATE 325 MG TAB PO SCH ×2 (16:10→16:11)
[2017-11-08] MEDS: MAGNESIUM OXIDE 400 MG TAB PO SCH (16:10)
[2017-11-08] MEDS: ACETAMINOPHEN TAB 500 MG TAB PO PRN (16:10)
[2017-11-08] MEDS: TORSEMIDE 20 MG TAB PO SCH (16:11)
[2017-11-08] MEDS: AZTREONAM 2 GM in SODIUM CHLORIDE 0.9% 100 ML IVPB SCH (16:14)
--- NOTE | 2017-11-08 16:40 | CDI ---
Last Revision, April 2017 Documentation Clarification Form Date: 11/08/2017 12:00:00 AM From: Jacque Martinez RN, CCDS Admit Date: 11/05/2017 2:50:00 AM Patient Name: Susie Garcia Visit Number: [id number] Discharge Date: ATTENTION: The Clinical Documentation Specialists (CDI) and [facility] Coding Staff appreciate your assistance in clarifying documentation. Please respond to the clarification below the line at the bottom and electronically sign. The CDI & [facility] Coding staff will review the response and follow-up if needed. Please note: Queries are made part of the Legal Health Record. If you have any questions, please contact the author of this message via ITS. Dr. Reena Dasilva 11/07/17 ID (Dr Niño) Documentation and diagnostic impression: Patient admitted to hospital with sepsis. The patient did have diverticulitis with a microperformation with fever, did have concern for possible abscess. History/Risk Factors: Atrial Fibrillation Diabetes Mellitus, Clinical Indicators: Present with complaints of abdominal pain with nausea. On exam she has CAT scan of abdomen and pelvis shows evidence of diverticulitis involving the proximal to mid descending colon. WBC/Left Shift on admission 8.8 Blood cultures: Preliminary No growth after 72 hours Vitals signs on admission: 138.63 105 20 101.8 91 % RA Other clinical indicators: 11/08/17 108/65 92 18 102.1 90 % RA Abdominal CAT scan : Redemonstration of complicated acute splenic flexure and descending colonic diverticulitis with focal perforation and development of small percolonic abscesses along the mesenteric border. Treatment: Monitor Labs, Vital signs IV Fluids Aztreonam IV Flagyl PO Morphine Sulfate IV, PRN In your professional opinion, please clarify if these findings signify one of the following conditions, whether the condition is POA, and cause, if known: Condition Sepsis ruled out SIRS, without underlying infectious process Sepsis Severe Sepsis Septic Shock Other, please specify Unable to determine Present on Admission: Yes No Identify the (suspected) organism Link or clarify if there is associated (due to/with): Organ failure Shock Please continue to document in your progress notes and discharge summary in order to capture severity of illness and risk of mortality. Include clinical findings that support your diagnosis. Added to PN MTDD
[2017-11-08 17:03] LABS: Glucose,Whole Blood 198 mg/dL (75-99)
[2017-11-08] MEDS: metroNIDAZOLE 500 MG TAB PO SCH ×2 (17:37→21:36)
[2017-11-08] MEDS: 0.9% NACL WITH KCL 40 MEQ/L 1,000 ML IV SCH (17:37)
[2017-11-08 21:05] LABS: Glucose,Whole Blood 121 mg/dL (75-99)
[2017-11-08] MEDS: traZODone HCL 100 MG TAB PO SCH (21:36)
[2017-11-08] MEDS: DILTIAZEM CD 180 MG CAP.ER.24H PO SCH (21:37)
[2017-11-08] MEDS: POTASSIUM CHLORIDE ER 10 MEQ TAB.ER.PRT PO SCH (21:37)
[2017-11-08] MEDS: ATORVASTATIN 10 MG TAB PO SCH (21:38)
--- NOTE | 2017-11-08 23:38 | PN ---
PROGRESS NOTE DATE OF SERVICE: 11/08/2017. REASON FOR FOLLOWUP: Acute diverticulitis with microperforation and abscess. INTERVAL HISTORY: The patient has been running a fever. He did have fever of 102 degrees Fahrenheit early this morning with repeat this afternoon. The patient has been breathing comfortably. Denies significant chest pain or shortness of breath or cough. Left lower abdominal pain seems to have improved. No nausea, vomiting or any diarrhea. EXAMINATION: Blood pressure 130/65 with a pulse of 92, temperature of 99. She is 90% on room air. General description is a middle-aged female lying in bed in no distress. RESPIRATORY SYSTEM: Unlabored breathing. Clear to auscultation anteriorly. HEART: S1, S2. Regular rate and rhythm. ABDOMEN: Soft. No tenderness. EXTREMITIES: No edema of feet. LABS: Hemoglobin is 8.4, white count of 4.5. BUN of 18, creatinine 0.73. CT abdomen-pelvis did show some diverticulitis with very small abscess. DIAGNOSTIC IMPRESSION AND PLAN: Patient admitted to the hospital with sepsis, source of acute diverticulitis with microperforation. The patient has been treated with meropenem and did have history of penicillin and amoxicillin allergy with a persistent fever with concern for possible drug fever, as the CT of the abdomen and pelvis did not show significant or large abscess that could have been drained out. At this time will discontinue the meropenem. Start the patient on Azactam 2 g q.8h in addition to the oral Flagyl and see response of the patient to the change in antibiotic therapy. Continue supportive care. Plan of care was discussed with the surgeon. JARAD / BELLO: [id number] /
[2017-11-09] MEDS: AZTREONAM 2 GM in SODIUM CHLORIDE 0.9% 100 ML IVPB SCH ×4 (00:12→23:33)
[2017-11-09] MEDS: ACETAMINOPHEN TAB 500 MG TAB PO PRN ×2 (00:15→08:03)
[2017-11-09] MEDS: HEPARIN SODIUM,PORCINE 5,000 UNIT/ML 1 ML VIAL SQ SCH ×4 (00:16→23:33)
[2017-11-09] MEDS: 0.9% NACL WITH KCL 40 MEQ/L 1,000 ML IV SCH ×3 (01:58→16:27)
[2017-11-09] MEDS: MORPHINE SULFATE 2 MG/ML SYRINGE IV PRN ×3 (04:34→17:54)
[2017-11-09 06:43] LABS: Anisocytosis Slight; Basophils % (A) 0 %; Eosinophils # (A) 0.1 k/uL (0-0.7); Eosinophils % (A) 2 %; HCT 27.7 % (34.0-46.0); HGB 8.7 gm/dL (11.4-16.0); Hypochromasia Slight; Lymphocytes # (A) 0.9 k/uL (1.0-4.8); Lymphocytes % (A) 16 %; MCH 20.3 pg (25.0-35.0); MCHC 31.2 g/dL (31.0-37.0); Mean Platelet Volume 6.3; Microcytosis Marked; Monocytes # (A) 0.4 k/uL (0-1.0); Monocytes % (A) 7 %; Neutrophils % (A) 72 %; Platelet Count 177 k/uL (150-450); Poikilocytosis Slight; RBC 4.27 m/uL (3.80-5.40); RDW 16.5 % (11.5-15.5); WBC 5.5 k/uL (3.8-10.6)
[2017-11-09 06:54] LABS: Anion Gap 7 mmol/L; Blood Urea Nitrogen 7 mg/dL (7-17); Calcium 8.1 mg/dL (8.4-10.2); Carbon Dioxide 31 mmol/L (22-30); Chloride 108 mmol/L (98-107); Glucose 99 mg/dL (74-99); Potassium 4.3 mmol/L (3.5-5.1); Sodium 146 mmol/L (137-145)
[2017-11-09 07:10] LABS: Glucose,Whole Blood 103 mg/dL (75-99)
[2017-11-09] MEDS: INSULIN ASPART 100 UNIT/ML 1 ML 10 ML VIAL SQ SCH ×4 (07:58→21:39)
[2017-11-09] MEDS: ALPRAZolam 0.5 MG TAB PO SCH ×3 (08:07→21:46)
[2017-11-09] MEDS: PANTOPRAZOLE 40 MG/10 ML VIAL IV SCH (09:13)
--- NOTE | 2017-11-09 09:55 | P.PN ---
<Sylvia Paniagua - Last Filed: 11/09/17 09:49> Subjective Progress Note Date: 11/09/17 62-year-old female seen this morning on rounds. Patient states is an improvement with less right lower quadrant pain. Did have a bowel movement. Did note the patient did have a temp at midnight or 1 a 1.2. Current temp 98. The white count 5.5 electrolytes within normal limits current blood cultures show no growth today 2 views to be followed by infectious disease on IV meropenem abdomen is soft nondistended Objective - Vital Signs Vital signs: Vital Signs Temp 99.2 F 11/09/17 08:43 Pulse 77 11/09/17 08:43 Resp 16 11/09/17 08:43 BP 132/73 11/09/17 08:43 Pulse Ox 91 L 11/09/17 08:43 Intake & Output 11/08/17 11/09/17 11/09/17 18:59 06:59 18:59 Intake Total 60 180 Output Total 550 Balance -490 180 Intake: Oral 60 180 Output: Urine 550 Other: Voiding Method Toilet # Voids 3 1 - Exam Physical exam 62-year-old female sitting up in bed reports having mild right lower quadrant radiates across "a lot less tender this morning Lungs essentially clear on room air sats are 93% no cough Heart S1-S2 audible regular Abdomen obese soft reports diffuse tenderness right lower quadrant nondistended bowel tones present states passing gas bowel movement last night Extremities no edema noted - Labs CBC & Chem 7: 11/09/17 05:57 11/09/17 05:57 Labs: Abnormal Lab Results - Last 24 Hours (Table) 11/08/17 11/08/17 11/08/17 Range/Units 11:25 16:58 17:24 Hgb (11.4-16.0) gm/dL Hct (34.0-46.0) % MCV (80.0-100.0) fL MCH (25.0-35.0) pg RDW (11.5-15.5) % Lymphocytes # (1.0-4.8) k/uL Sodium (137-145) mmol/L Potassium 3.4 L (3.5-5.1) mmol/L Chloride (98-107) mmol/L Carbon Dioxide (22-30) mmol/L POC Glucose (mg/dL) 122 H 198 H (75-99) mg/dL Calcium (8.4-10.2) mg/dL 11/08/17 11/09/17 11/09/17 Range/Units 21:03 05:57 05:57 Hgb 8.7 L (11.4-16.0) gm/dL Hct 27.7 L (34.0-46.0) % MCV 65.0 L (80.0-100.0) fL MCH 20.3 L (25.0-35.0) pg RDW 16.5 H (11.5-15.5) % Lymphocytes # 0.9 L (1.0-4.8) k/uL Sodium 146 H (137-145) mmol/L Potassium (3.5-5.1) mmol/L Chloride 108 H (98-107) mmol/L Carbon Dioxide 31 H (22-30) mmol/L POC Glucose (mg/dL) 121 H (75-99) mg/dL Calcium 8.1 L (8.4-10.2) mg/dL 11/09/17 Range/Units 07:03 Hgb (11.4-16.0) gm/dL Hct (34.0-46.0) % MCV (80.0-100.0) fL MCH (25.0-35.0) pg RDW (11.5-15.5) % Lymphocytes # (1.0-4.8) k/uL Sodium (137-145) mmol/L Potassium (3.5-5.1) mmol/L Chloride (98-107) mmol/L Carbon Dioxide (22-30) mmol/L POC Glucose (mg/dL) 103 H (75-99) mg/dL Calcium (8.4-10.2) mg/dL Microbiology - Last 24 Hours (Table) 11/05/17 01:40 Blood Culture - Preliminary Blood No Growth after 96 hours 11/06/17 13:45 Blood Culture - Preliminary Blood No Growth after 48 hours 11/06/17 13:25 Blood Culture - Preliminary Blood No Growth after 48 hours Assessment and Plan Assessment: impression present on admission diffuse abdominal pain suspect due to acute diverticulitis with microperforation Computed tomography scan of the abdomen pelvis consistent with the episode of diverticulitis obesity BMI 37 Multiple antibiotic ALLERGIES chronic atrial fibrillation on Xarelto on hold Sleep apnea with the use of CPAP therapy Persistent episodes intermittent fever Plan Continue antibiotics per infectious diseases recommendations meropenem IV fluid as ordered DVT and GI prophylaxis Pain control Further surgical recommendations pending will follow with you The above impression and plan of care have been discussed and directed by signing physician. Sylvia Paniagua nurse practitioner acting as scribe for signing physician. <Valdemar Gaona - Last Filed: 11/09/17 15:18> Objective - Vital Signs Vital signs: Vital Signs Temp 99.2 F 11/09/17 08:43 Pulse 77 11/09/17 08:43 Resp 16 11/09/17 08:43 BP 132/73 11/09/17 08:43 Pulse Ox 91 L 11/09/17 08:43 Intake & Output 11/08/17 11/09/17 11/09/17 18:59 06:59 18:59 Intake Total 60 180 Output Total 550 Balance -490 180 Intake: Oral 60 180 Output: Urine 550 Other: Voiding Method Toilet # Voids 3 1 1 - Labs CBC & Chem 7: 11/09/17 05:57 11/09/17 05:57 Labs: Abnormal Lab Results - Last 24 Hours (Table) 11/08/17 11/08/17 11/08/17 Range/Units 16:58 17:24 21:03 Hgb (11.4-16.0) gm/dL Hct (34.0-46.0) % MCV (80.0-100.0) fL MCH (25.0-35.0) pg RDW (11.5-15.5) % Lymphocytes # (1.0-4.8) k/uL Sodium (137-145) mmol/L Potassium 3.4 L (3.5-5.1) mmol/L Chloride (98-107) mmol/L Carbon Dioxide (22-30) mmol/L POC Glucose (mg/dL) 198 H 121 H (75-99) mg/dL Calcium (8.4-10.2) mg/dL 11/09/17 11/09/17 11/09/17 Range/Units 05:57 05:57 07:03 Hgb 8.7 L (11.4-16.0) gm/dL Hct 27.7 L (34.0-46.0) % MCV 65.0 L (80.0-100.0) fL MCH 20.3 L (25.0-35.0) pg RDW 16.5 H (11.5-15.5) % Lymphocytes # 0.9 L (1.0-4.8) k/uL Sodium 146 H (137-145) mmol/L Potassium (3.5-5.1) mmol/L Chloride 108 H (98-107) mmol/L Carbon Dioxide 31 H (22-30) mmol/L POC Glucose (mg/dL) 103 H (75-99) mg/dL Calcium 8.1 L (8.4-10.2) mg/dL 11/09/17 Range/Units 11:19 Hgb (11.4-16.0) gm/dL Hct (34.0-46.0) % MCV (80.0-100.0) fL MCH (25.0-35.0) pg RDW (11.5-15.5) % Lymphocytes # (1.0-4.8) k/uL Sodium (137-145) mmol/L Potassium (3.5-5.1) mmol/L Chloride (98-107) mmol/L Carbon Dioxide (22-30) mmol/L POC Glucose (mg/dL) 108 H (75-99) mg/dL Calcium (8.4-10.2) mg/dL Microbiology - Last 24 Hours (Table) 11/05/17 01:40 Blood Culture - Preliminary Blood No Growth after 96 hours 11/06/17 13:45 Blood Culture - Preliminary Blood No Growth after 48 hours 11/06/17 13:25 Blood Culture - Preliminary Blood No Growth after 48 hours Assessment and Plan Assessment: Patient continues to improve. Minimal abdominal discomfort at this time she states. She is hungry. She is having loose stools. T-max of 101.2 last night around midnight. White blood cell count remains normal. She is ambulating. We 'll gradually advance diet. Consider follow-up computed tomography scan 1 week if symptoms persist. (1) Acute diverticulitis Current Visit: Yes Status: Acute Code(s): K57.92 - DVTRCLI OF INTEST, PART UNSP, W/O PERF OR ABSCESS W/O BLEED SNOMED Code(s): 064942475
[2017-11-09] MEDS: metroNIDAZOLE 500 MG TAB PO SCH ×3 (11:06→21:46)
[2017-11-09 11:27] LABS: Glucose,Whole Blood 108 mg/dL (75-99)
[2017-11-09] MEDS: ACETAMINOPHEN IV (For NPO) 1,000 MG in EMPTY BAG 1 BAG IVPB PRN ×2 (12:05→17:51)
--- NOTE | 2017-11-09 16:45 | P.PN ---
Subjective Progress Note Date: 11/09/17 Progress note being dictated for Dr. Turner. mitzy diverticulitis with possible perforation A 62-year-old female who was transferred out from [place]. She resides up in [place]. She apparently presented with abdominal pain and possible perforation. She's feeling much better now. Apparently she was seen by the surgeon and the surgeon thought she could move out of the ICU. She denies all other complaints other than abdominal pain. The patient apparently has a history of atrial fibrillation, diabetes, and hyperlipidemia. She's also had section hysterectomy joint replacement orthopedic procedures carpal tunnel and trigger finger. She does have a history of anxiety. She was a former smoker. She's been stable here in the intensive care unit from the respiratory status and hemodynamic status. She was transferred from [place] to the emergency room and up to the ICU. 11/06/2017 Patient says that her abdominal pain is better today. Patient was started on clear liquids. Otherwise patient is being continued on antibiotics. Currently patient is in the general medical floor. General surgery and pulmonary is following. No fever no chills. No chest pain or shortness of breath. 11/07/2017 Patient denied any worsening abdominal pain. Tolerating oral liquids. Patient developed fever last night. T-max 102.6. No diarrhea. No cough or sputum production. Planning for repeat CT abdomen if continues to be febrile. WBC 5.4. Currently afebrile. No chest pain or shortness of breath. All other review of systems negative except the above Current medications reviewed 11/08/2017 bowel movement last night. Diffuse abdominal pain, mid -epigastric radiating to right lower quadrant. Denies nausea or vomiting. T-max 102.4. WBC 4.5. Preliminary blood cultures reporting no growth .Maintained on IV antibiotics of Merrem as per infectious disease. CT of abdomen and pelvis completed, results pending. Potassium 3.1. 11/09/2017 maintained on Merrem, T-max 102.1, WBC 5.5. Blood cultures remain negative at 72 hours. Abdominal/pelvis CT noted; consistent with diverticulitis per surgery's review of film. Mild right lower quadrant pain. Positive bowel movement. Complains of headache-states very common as she has history of tension headaches. Objective - Vital Signs Vital signs: Vital Signs Temp 98.9 F 11/09/17 15:00 Pulse 68 11/09/17 15:00 Resp 16 11/09/17 16:10 BP 94/61 11/09/17 15:00 Pulse Ox 98 11/09/17 15:00 Intake & Output 11/08/17 11/09/17 11/09/17 18:59 06:59 18:59 Intake Total 60 180 Output Total 550 Balance -490 180 Intake: Oral 60 180 Output: Urine 550 Other: Voiding Method Toilet # Voids 3 1 1 - Exam Patient is sitting up in the bed, no acute distress, awake alert and oriented. Teary-eyed at times HEENT: Normocephalic. Neck is supple. Pupils reactive. Nostrils clear. Oral cavity is moist. Neck reveals no JVD, carotid bruits, or thyromegaly. CHEST EXAMINATION: Trachea is central. Symmetrical expansion. Bibasilar diminished air entry. Lung hankins clear to auscultation and percussion. CARDIAC: Normal S1, S2 with no gallops. No murmurs ABDOMEN: Soft. Nondistended, Improving right lower quadrant tenderness. Bowel sounds normal. No organomegaly. No abdominal bruits. Extremities: reveal no edema. No clubbing or cyanosis Neurologically awake, alert, oriented x3 with well-coordinated movements. No focal deficits noted Skin: No rash or skin lesions. Psychiatric: Coperative. Nonsuicidal Musculoskeletal: No joint swelling or deformity. Normal range of motion. - Labs CBC & Chem 7: 11/09/17 05:57 11/09/17 05:57 Labs: Abnormal Lab Results - Last 24 Hours (Table) 11/08/17 11/08/17 11/08/17 Range/Units 16:58 17:24 21:03 Hgb (11.4-16.0) gm/dL Hct (34.0-46.0) % MCV (80.0-100.0) fL MCH (25.0-35.0) pg RDW (11.5-15.5) % Lymphocytes # (1.0-4.8) k/uL Sodium (137-145) mmol/L Potassium 3.4 L (3.5-5.1) mmol/L Chloride (98-107) mmol/L Carbon Dioxide (22-30) mmol/L POC Glucose (mg/dL) 198 H 121 H (75-99) mg/dL Calcium (8.4-10.2) mg/dL 11/09/17 11/09/17 11/09/17 Range/Units 05:57 05:57 07:03 Hgb 8.7 L (11.4-16.0) gm/dL Hct 27.7 L (34.0-46.0) % MCV 65.0 L (80.0-100.0) fL MCH 20.3 L (25.0-35.0) pg RDW 16.5 H (11.5-15.5) % Lymphocytes # 0.9 L (1.0-4.8) k/uL Sodium 146 H (137-145) mmol/L Potassium (3.5-5.1) mmol/L Chloride 108 H (98-107) mmol/L Carbon Dioxide 31 H (22-30) mmol/L POC Glucose (mg/dL) 103 H (75-99) mg/dL Calcium 8.1 L (8.4-10.2) mg/dL 11/09/17 Range/Units 11:19 Hgb (11.4-16.0) gm/dL Hct (34.0-46.0) % MCV (80.0-100.0) fL MCH (25.0-35.0) pg RDW (11.5-15.5) % Lymphocytes # (1.0-4.8) k/uL Sodium (137-145) mmol/L Potassium (3.5-5.1) mmol/L Chloride (98-107) mmol/L Carbon Dioxide (22-30) mmol/L POC Glucose (mg/dL) 108 H (75-99) mg/dL Calcium (8.4-10.2) mg/dL Microbiology - Last 24 Hours (Table) 11/06/17 13:45 Blood Culture - Preliminary Blood No Growth after 72 hours 11/06/17 13:25 Blood Culture - Preliminary Blood No Growth after 72 hours 11/05/17 01:40 Blood Culture - Preliminary Blood No Growth after 96 hours Assessment and Plan Assessment: Sepsis, Present on admission, secondary to Acute diverticulitis with microperforation Hyperglycemia due to uncontrolled diabetes type 2. Currently controlled. Microcytic iron deficiency anemia Chronic atrial fibrillation. Rate controlled with Cardizem. On oral anticoagulant at home. Obstructive sleep apnea on CPAP at home Hyperlipidemia DVT prophylaxis with heparin subcu Plan: Continue on current medication regime ,monitoring and symptomatic treatment. Antibiotics as per infectious disease. Maintain IV fluid hydration. Pain management as per surgery. IV tylenol, added for headache. The impression and plan of care has been dictated as directed. : I performed a history and examination of this patient, discussed the same with the dictator. I agree with the dictator's note ,documented as a scribe. Any additional findings or plans will be noted.
[2017-11-09 16:53] LABS: Glucose,Whole Blood 99 mg/dL (75-99)
[2017-11-09] MEDS: MAGNESIUM OXIDE 400 MG TAB PO SCH (19:23)
[2017-11-09] MEDS: TORSEMIDE 20 MG TAB PO SCH (19:23)
[2017-11-09 20:19] LABS: Glucose,Whole Blood 126 mg/dL (75-99)
[2017-11-09] MEDS: ATORVASTATIN 10 MG TAB PO SCH (21:45)
[2017-11-09] MEDS: DILTIAZEM CD 180 MG CAP.ER.24H PO SCH (21:45)
[2017-11-09] MEDS: traZODone HCL 100 MG TAB PO SCH (21:45)
[2017-11-09] MEDS: POTASSIUM CHLORIDE ER 10 MEQ TAB.ER.PRT PO SCH (21:45)
--- NOTE | 2017-11-09 23:48 | PN ---
PROGRESS NOTE DATE OF SERVICE: 11/09/2017. REASON FOR FOLLOWUP: Acute diverticulitis with microperforation. INTERVAL HISTORY: The patient's overall fever pattern has improved. The last fever recorded has been at midnight. No fever since then. The patient has been feeling better, breathing comfortably. Denies significant chest pain or cough. Abdominal pain has improved. No nausea, vomiting. No diarrhea. EXAMINATION: Blood pressure 104/51 with a pulse of 68, temperature 98.8. She is 98% on room air. General description is a middle-aged female lying in bed in no distress. HEENT shows slight pallor. No scleral icterus. Oral mucous membranes dry. LUNGS: Unlabored breathing. Clear to auscultation anteriorly. HEART: S1, S2. Regular rate and rhythm. ABDOMEN: Soft. No tenderness. LABS: Hemoglobin 8.6, white count of 5.5 with a BUN of 7, creatinine 0.71. DIAGNOSTIC IMPRESSION AND PLAN: Patient with acute diverticulitis with microperforation. The patient at this time to continue with Azactam and Flagyl. Will hopefully transition to oral antibiotic on discharge. Continue supportive care. MMODL / IJN: [id number] /
[2017-11-10] MEDS: MORPHINE SULFATE 2 MG/ML SYRINGE IV PRN ×3 (05:04→18:00)
[2017-11-10] MEDS: 0.9% NACL WITH KCL 40 MEQ/L 1,000 ML IV SCH ×3 (05:06→23:16)
[2017-11-10] MEDS ORDERED: ACETAMINOPHEN IV (For NPO) 1,000 MG in EMPTY BAG 1 BAG IVPB ONE (06:24)
[2017-11-10 06:53] LABS: Glucose,Whole Blood 90 mg/dL (75-99)
[2017-11-10 07:07] LABS: Anion Gap 8 mmol/L; Blood Urea Nitrogen 9 mg/dL (7-17); Calcium 8.4 mg/dL (8.4-10.2); Carbon Dioxide 29 mmol/L (22-30); Chloride 104 mmol/L (98-107); Glucose 81 mg/dL (74-99); Potassium 4.5 mmol/L (3.5-5.1); Sodium 141 mmol/L (137-145)
[2017-11-10 07:18] LABS: Anisocytosis Slight; Basophils % (A) 0 %; Eosinophils # (A) 0.1 k/uL (0-0.7); Eosinophils % (A) 1 %; HCT 30.5 % (34.0-46.0); HGB 9.4 gm/dL (11.4-16.0); Hypochromasia Moderate; Lymphocytes # (A) 1.2 k/uL (1.0-4.8); Lymphocytes % (A) 16 %; MCH 20.2 pg (25.0-35.0); MCHC 30.7 g/dL (31.0-37.0); MCV 65.8 fL (80.0-100.0); Mean Platelet Volume 6.2; Microcytosis Marked; Monocytes # (A) 0.5 k/uL (0-1.0); Monocytes % (A) 7 %; Neutrophils # (A) 5.6 k/uL (1.3-7.7); Neutrophils % (A) 75 %; Platelet Count 242 k/uL (150-450); Poikilocytosis Slight; RBC 4.63 m/uL (3.80-5.40); RDW 16.7 % (11.5-15.5); WBC 7.5 k/uL (3.8-10.6)
[2017-11-10 08:20] LABS: RBC Fragments Present; Tear Drop Cells Present
[2017-11-10] MEDS: HEPARIN SODIUM,PORCINE 5,000 UNIT/ML 1 ML VIAL SQ SCH ×3 (08:42→23:16)
[2017-11-10] MEDS: ALPRAZolam 0.5 MG TAB PO SCH ×3 (08:42→21:00)
[2017-11-10] MEDS: metroNIDAZOLE 500 MG TAB PO SCH ×3 (08:43→21:00)
[2017-11-10] MEDS: INSULIN ASPART 100 UNIT/ML 1 ML 10 ML VIAL SQ SCH ×4 (09:04→21:00)
--- NOTE | 2017-11-10 11:13 | P.PN ---
Progress Note - Text Progress Note Date: 11/10/17 The patient's resting comfortably in bed. She still has complaints of left lower quadrant pain. On exam her vital signs are stable. Her abdomen soft. There is tenderness left lower quadrant. Patient continue clear liquid diet. We will advance her diet once her pain is improved.
[2017-11-10 11:30] LABS: Glucose,Whole Blood 95 mg/dL (75-99)
[2017-11-10] MEDS: PANTOPRAZOLE 40 MG/10 ML VIAL IV SCH (12:02)
[2017-11-10] MEDS: AZTREONAM 2 GM in SODIUM CHLORIDE 0.9% 100 ML IVPB SCH ×3 (12:03→23:16)
[2017-11-10 16:46] LABS: Glucose,Whole Blood 86 mg/dL (75-99)
[2017-11-10] MEDS: ACETAMINOPHEN TAB 500 MG TAB PO PRN (16:46)
[2017-11-10] MEDS: MAGNESIUM OXIDE 400 MG TAB PO SCH (18:04)
[2017-11-10 19:53] LABS: Glucose,Whole Blood 114 mg/dL (75-99)
[2017-11-10] MEDS: ATORVASTATIN 10 MG TAB PO SCH (20:59)
[2017-11-10] MEDS: DILTIAZEM CD 180 MG CAP.ER.24H PO SCH (20:59)
[2017-11-10] MEDS: traZODone HCL 100 MG TAB PO SCH (21:00)
[2017-11-10] MEDS: POTASSIUM CHLORIDE ER 10 MEQ TAB.ER.PRT PO SCH (21:00)
--- NOTE | 2017-11-10 23:41 | P.PN ---
Subjective Progress Note Date: 11/10/17 Principal diagnosis: Acute diverticulitis with possible perforation A 62-year-old female who was transferred out from [place]. She resides up in [place]. She apparently presented with abdominal pain and possible perforation. She's feeling much better now. Apparently she was seen by the surgeon and the surgeon thought she could move out of the ICU. She denies all other complaints other than abdominal pain. The patient apparently has a history of atrial fibrillation, diabetes, and hyperlipidemia. She's also had section hysterectomy joint replacement orthopedic procedures carpal tunnel and trigger finger. She does have a history of anxiety. She was a former smoker. She's been stable here in the intensive care unit from the respiratory status and hemodynamic status. She was transferred from [place] to the emergency room and up to the ICU. 11/06/2017 Patient says that her abdominal pain is better today. Patient was started on clear liquids. Otherwise patient is being continued on antibiotics. Currently patient is in the general medical floor. General surgery and pulmonary is following. No fever no chills. No chest pain or shortness of breath. 11/07/2017 Patient denied any worsening abdominal pain. Tolerating oral liquids. Patient developed fever last night. T-max 102.6. No diarrhea. No cough or sputum production. Planning for repeat CT abdomen if continues to be febrile. WBC 5.4. Currently afebrile. No chest pain or shortness of breath. 11/10/2017 Patient denied any chest pain or shortness of breath. Abdominal pain is improving otherwise. Patient is afebrile. Will reduce dose of Cardizem and discontinue diuretics due to hypotension. Patient will be continued on IV antibiotics in the form of metronidazole and aztreonam. No nausea vomiting. No headache or dizziness or lightheadedness. All other review of systems negative except the above Current medications reviewed Objective - Vital Signs Vital signs: Vital Signs Temp 98.7 F 11/10/17 07:37 Pulse 95 11/10/17 07:37 Resp 18 11/10/17 07:37 BP 108/70 11/10/17 07:37 Pulse Ox 93 L 11/10/17 07:37 Intake & Output 11/09/17 11/10/17 11/10/17 18:59 06:59 18:59 Intake Total 1240 Balance 1240 Intake: Intake, IV Titration 1000 Amount 0.9% NaCl with KCl 40 Meq 900 /l 1,000 ml @ 100 mls/hr IV .Q10H EZRA Rx#: [id number] Aztreonam 2 gm In Sodium 100 Chloride 0.9% 100 ml @ 100 mls/hr IVPB Q8HR EZRA Rx#:[id number] Oral 240 Other: Voiding Method Toilet # Voids 1 1 - Exam PHYSICAL EXAMINATION: Patient is lying in the bed comfortably, no acute distress, awake alert and oriented.. HEENT: Normocephalic. Neck is supple. Pupils reactive. Nostrils clear. Oral cavity is moist. Ears reveal no drainage. Neck reveals no JVD, carotid bruits, or thyromegaly. CHEST EXAMINATION: Trachea is central. Symmetrical expansion. Bibasilar diminished air entry. Lung hankins clear to auscultation and percussion. CARDIAC: Normal S1, S2 with no gallops. No murmurs ABDOMEN: Soft. mild left lower quadrant. Bowel sounds normal. No organomegaly. No abdominal bruits. Extremities: reveal no edema. No clubbing or cyanosis Neurologically awake, alert, oriented x3 with well-coordinated movements. No focal deficits noted Skin: No rash or skin lesions. Psychiatric: Coperative. Nonsuicidal Musculoskeletal: No joint swelling or deformity. Normal range of motion. - Labs CBC & Chem 7: 11/10/17 06:11 11/10/17 06:11 Labs: Abnormal Lab Results - Last 24 Hours (Table) 11/09/17 11/10/17 Range/Units 19:58 06:11 Hgb 9.4 L (11.4-16.0) gm/dL Hct 30.5 L (34.0-46.0) % MCV 65.8 L (80.0-100.0) fL MCH 20.2 L (25.0-35.0) pg MCHC 30.7 L (31.0-37.0) g/dL RDW 16.7 H (11.5-15.5) % POC Glucose (mg/dL) 126 H (75-99) mg/dL Microbiology - Last 24 Hours (Table) 11/05/17 01:40 Blood Culture - Preliminary Blood No Growth after 120 hours 11/06/17 13:45 Blood Culture - Preliminary Blood No Growth after 72 hours 11/06/17 13:25 Blood Culture - Preliminary Blood No Growth after 72 hours Assessment and Plan Assessment: Acute diverticulitis with possible perforation. Abdominal pain improving.. Hyperglycemia due to uncontrolled diabetes type 2. On metformin at home Microcytic iron deficiency anemia Chronic atrial fibrillation. Rate controlled with Cardizem. On oral anticoagulant at home. Obstructive sleep apnea on CPAP at home Hyperlipidemia DVT prophylaxis with heparin subcu Plan: Patient will be continued on antibiotics in the form of metronidazole and aztreonam. Pulmonary and ID and surgery is following. Oral anticoagulation has been held due to possible surgical intervention. Continue with Accu-Cheks and monitor H&H. Further recommendations based on the clinical course. Time with Patient: Greater than 30
[2017-11-11] MEDS: ACETAMINOPHEN TAB 500 MG TAB PO PRN ×3 (01:26→19:19)
[2017-11-11] MEDS: MORPHINE SULFATE 2 MG/ML SYRINGE IV PRN ×4 (01:26→19:20)
--- NOTE | 2017-11-11 03:40 | PN ---
PROGRESS NOTE DATE OF SERVICE: 11/10/2017. REASON FOR FOLLOWUP: Acute diverticulitis with microperforation. INTERVAL HISTORY: The patient has been afebrile. She seemed to have been pain medication and at the time of my evaluation. No nausea, vomiting, or diarrhea has been recorded by nursing staff. No change in her clinical condition. EXAMINATION: Blood pressure 132/66, pulse of 72, temperature 98.2, she is 93% on room air. General description is a middle aged female, lying in bed in no distress. Respiratory system: Unlabored breathing, clear to auscultation anteriorly. Heart S1, S2. Regular rate and rhythm. ABDOMEN: Soft, no tenderness. LABS: Hemoglobin is 9.4, white count 7.5 with a BUN of 9, creatinine 0.70. Blood cultures remain to be negative. DIAGNOSTIC IMPRESSION AND PLAN: Patient with acute diverticulitis with microperforation. The patient is currently covered with Azactam and Flagyl because of transitioning to oral antibiotic on discharge and the patient continues to improve. Continue supportive care. MMODL / IJN: [id number] /
[2017-11-11 06:49] LABS: Glucose,Whole Blood 87 mg/dL (75-99)
[2017-11-11] MEDS: INSULIN ASPART 100 UNIT/ML 1 ML 10 ML VIAL SQ SCH ×4 (07:51→20:59)
[2017-11-11] MEDS: AZTREONAM 2 GM in SODIUM CHLORIDE 0.9% 100 ML IVPB SCH ×3 (07:58→23:01)
[2017-11-11] MEDS: HEPARIN SODIUM,PORCINE 5,000 UNIT/ML 1 ML VIAL SQ SCH ×3 (07:58→23:01)
[2017-11-11] MEDS: ALPRAZolam 0.5 MG TAB PO SCH ×3 (07:58→21:00)
[2017-11-11] MEDS: PANTOPRAZOLE 40 MG/10 ML VIAL IV SCH (07:58)
[2017-11-11] MEDS: metroNIDAZOLE 500 MG TAB PO SCH ×3 (07:58→21:00)
[2017-11-11 08:15] LABS: Anisocytosis Slight; Basophils % (A) 0 %; Eosinophils # (A) 0.1 k/uL (0-0.7); Eosinophils % (A) 2 %; HCT 30.7 % (34.0-46.0); HGB 9.2 gm/dL (11.4-16.0); Hypochromasia Marked; Lymphocytes # (A) 1.2 k/uL (1.0-4.8); Lymphocytes % (A) 18 %; MCH 20.1 pg (25.0-35.0); MCHC 30.1 g/dL (31.0-37.0); MCV 66.7 fL (80.0-100.0); Mean Platelet Volume 6.3; Microcytosis Marked; Monocytes # (A) 0.3 k/uL (0-1.0); Monocytes % (A) 5 %; Neutrophils # (A) 4.8 k/uL (1.3-7.7); Neutrophils % (A) 73 %; Platelet Count 260 k/uL (150-450); Poikilocytosis Slight; RBC 4.59 m/uL (3.80-5.40); RDW 17.1 % (11.5-15.5); WBC 6.5 k/uL (3.8-10.6)
[2017-11-11 08:31] LABS: Anion Gap 13 mmol/L; Blood Urea Nitrogen 7 mg/dL (7-17); Calcium 8.4 mg/dL (8.4-10.2); Carbon Dioxide 23 mmol/L (22-30); Chloride 107 mmol/L (98-107); Glucose 99 mg/dL (74-99); Potassium 4.4 mmol/L (3.5-5.1); Sodium 143 mmol/L (137-145)
--- NOTE | 2017-11-11 09:26 | P.PN ---
Progress Note - Text Progress Note Date: 11/11/17 The patient is resting in her bed. She has complaints of some left-sided pain. On exam her vital signs show. A soft. Patient will have her diet advanced. We dysphagia discharged home next 24-48 hours.
[2017-11-11 11:09] LABS: Ovalocytes Present; RBC Fragments Present; Tear Drop Cells Present
[2017-11-11 11:41] LABS: Glucose,Whole Blood 92 mg/dL (75-99)
[2017-11-11] MEDS ORDERED: SODIUM FERRIC GLUCONAT-SUCROSE 125 MG in SODIUM CHLORIDE 0.9% 100 ML IVPB ONE (12:30)
[2017-11-11] MEDS: 0.9% NACL WITH KCL 40 MEQ/L 1,000 ML IV SCH ×2 (13:31→23:01)
[2017-11-11] MEDS ORDERED: valACYclovir HCL 1,000 MG TABLET PO SCH (16:16)
[2017-11-11 17:01] LABS: Glucose,Whole Blood 147 mg/dL (75-99)
[2017-11-11] MEDS: MAGNESIUM OXIDE 400 MG TAB PO SCH (17:57)
[2017-11-11 20:03] LABS: Glucose,Whole Blood 123 mg/dL (75-99)
[2017-11-11] MEDS: ATORVASTATIN 10 MG TAB PO SCH (20:59)
[2017-11-11] MEDS: POTASSIUM CHLORIDE ER 10 MEQ TAB.ER.PRT PO SCH (20:59)
[2017-11-11] MEDS: DILTIAZEM CD 180 MG CAP.ER.24H PO SCH (20:59)
[2017-11-11] MEDS: traZODone HCL 100 MG TAB PO SCH (20:59)
--- NOTE | 2017-11-11 22:56 | PN ---
PROGRESS NOTE DATE OF SERVICE: 11/21/2017. REASON FOR FOLLOWUP: Diverticulitis with microperforation. INTERVAL HISTORY: The patient is currently afebrile for about 48 hours: The patient is feeling better. She has been started on a regular diet and the patient tolerated it without any problem. Denies having any chest pain. No shortness of breath or cough. No nausea or vomiting. EXAMINATION: Blood pressure 115/76 with pulse of 70, temperature 98.1, she is 93% on room air. General description is a middle-aged female up in the bed in no distress. Respiratory system, unlabored breathing, clear to auscultation anteriorly. Heart, S1, S2. Regular rate and rhythm. Abdomen soft, no tenderness. Extremities, no edema of the feet. LABS: Hemoglobin 9.2 with white count 6.5, BUN of 7, creatinine 0.62. Blood culture negative. DIAGNOSTIC IMPRESSION AND PLAN: Patient with sigmoid diverticulitis with microperforation. The patient, at this time, seems to have shown clinical improvement. She has been started on a regular diet. The patient continues to improve and remains to be afebrile. Finish therapy with oral Cipro and Flagyl for 2 more weeks with close outpatient followup. MMODL / IJN: [id number] /
[2017-11-12] MEDS: MORPHINE SULFATE 2 MG/ML SYRINGE IV PRN ×3 (02:26→15:57)
[2017-11-12] MEDS: ACETAMINOPHEN TAB 500 MG TAB PO PRN ×3 (02:26→17:36)
[2017-11-12 06:59] LABS: Glucose,Whole Blood 92 mg/dL (75-99)
[2017-11-12] MEDS: INSULIN ASPART 100 UNIT/ML 1 ML 10 ML VIAL SQ SCH ×4 (07:07→20:49)
[2017-11-12] MEDS: AZTREONAM 2 GM in SODIUM CHLORIDE 0.9% 100 ML IVPB SCH ×3 (07:44→23:02)
[2017-11-12] MEDS: HEPARIN SODIUM,PORCINE 5,000 UNIT/ML 1 ML VIAL SQ SCH (07:54)
[2017-11-12] MEDS: PANTOPRAZOLE 40 MG/10 ML VIAL IV SCH (07:54)
[2017-11-12] MEDS: ALPRAZolam 0.5 MG TAB PO SCH ×3 (07:55→22:34)
[2017-11-12] MEDS: metroNIDAZOLE 500 MG TAB PO SCH ×3 (08:55→22:34)
[2017-11-12] MEDS: 0.9% NACL WITH KCL 40 MEQ/L 1,000 ML IV SCH ×2 (10:30→22:34)
[2017-11-12 11:28] LABS: Glucose,Whole Blood 164 mg/dL (75-99)
--- NOTE | 2017-11-12 13:27 | P.PN ---
Subjective Progress Note Date: 11/12/17 Progress note being dictated for Dr. Turner. mitzy diverticulitis with possible perforation A 62-year-old female who was transferred out from [place]. She resides up in [place]. She apparently presented with abdominal pain and possible perforation. She's feeling much better now. Apparently she was seen by the surgeon and the surgeon thought she could move out of the ICU. She denies all other complaints other than abdominal pain. The patient apparently has a history of atrial fibrillation, diabetes, and hyperlipidemia. She's also had section hysterectomy joint replacement orthopedic procedures carpal tunnel and trigger finger. She does have a history of anxiety. She was a former smoker. She's been stable here in the intensive care unit from the respiratory status and hemodynamic status. She was transferred from [place] to the emergency room and up to the ICU. 11/06/2017 Patient says that her abdominal pain is better today. Patient was started on clear liquids. Otherwise patient is being continued on antibiotics. Currently patient is in the general medical floor. General surgery and pulmonary is following. No fever no chills. No chest pain or shortness of breath. 11/07/2017 Patient denied any worsening abdominal pain. Tolerating oral liquids. Patient developed fever last night. T-max 102.6. No diarrhea. No cough or sputum production. Planning for repeat CT abdomen if continues to be febrile. WBC 5.4. Currently afebrile. No chest pain or shortness of breath. All other review of systems negative except the above Current medications reviewed 11/08/2017 bowel movement last night. Diffuse abdominal pain, mid -epigastric radiating to right lower quadrant. Denies nausea or vomiting. T-max 102.4. WBC 4.5. Preliminary blood cultures reporting no growth .Maintained on IV antibiotics of Merrem as per infectious disease. CT of abdomen and pelvis completed, results pending. Potassium 3.1. 11/09/2017 maintained on Merrem, T-max 102.1, WBC 5.5. Blood cultures remain negative at 72 hours. Abdominal/pelvis CT noted; consistent with diverticulitis per surgery's review of film. Mild right lower quadrant pain. Positive bowel movement. Complains of headache-states very common as she has history of tension headaches. 11/10/2017 Patient denied any chest pain or shortness of breath. Abdominal pain is improving otherwise. Patient is afebrile. Will reduce dose of Cardizem and discontinue diuretics due to hypotension. Patient will be continued on IV antibiotics in the form of metronidazole and aztreonam. No nausea vomiting. No headache or dizziness or lightheadedness. 11/12/2017 Tolerating regular diet. No nausea vomiting or diarrhea. Positive bowel movement last night. Maintained on Aztreonam,flagyl. Received Valtrex regimen for cold sores-significant improvement. Objective - Vital Signs Vital signs: Vital Signs Temp 98.6 F 11/12/17 07:09 Pulse 70 11/12/17 07:09 Resp 18 11/12/17 07:09 BP 106/62 11/12/17 07:09 Pulse Ox 93 L 11/12/17 07:09 Intake & Output 11/11/17 11/12/17 11/12/17 18:59 06:59 18:59 Intake Total 1350 Output Total 550 Balance -550 1350 Weight 95.2 kg Intake: Intake, IV Titration 1150 Amount 0.9% NaCl with KCl 40 Meq 1050 /l 1,000 ml @ 100 mls/hr IV .Q10H EZRA Rx#: [id number] Aztreonam 2 gm In Sodium 100 Chloride 0.9% 100 ml @ 100 mls/hr IVPB Q8HR EZRA Rx#:[id number] Oral 200 Output: Urine 550 Other: Voiding Method Toilet Toilet Toilet # Voids 1 2 - Exam Patient is sitting up in the bed, no acute distress, awake alert and oriented. HEENT: Normocephalic. Neck is supple. Pupils reactive. Nostrils clear. Oral cavity is moist. Neck reveals no JVD, carotid bruits, or thyromegaly. CHEST EXAMINATION: Trachea is central. Symmetrical expansion. Bibasilar diminished air entry. Lung hankins clear to auscultation and percussion. CARDIAC: Normal S1, S2 with no gallops. No murmurs ABDOMEN: Soft. Nondistended, minimal right lower quadrant tenderness. Bowel sounds normal. No organomegaly. No abdominal bruits. Extremities: reveal no edema. No clubbing or cyanosis Neurologically awake, alert, oriented x3 with well-coordinated movements. No focal deficits noted Skin: No rash or skin lesions. Psychiatric: Coperative. Nonsuicidal Musculoskeletal: No joint swelling or deformity. Normal range of motion. - Labs CBC & Chem 7: 11/11/17 07:36 11/11/17 07:36 Labs: Abnormal Lab Results - Last 24 Hours (Table) 11/11/17 11/11/17 11/12/17 Range/Units 16:56 19:50 11:26 POC Glucose (mg/dL) 147 H 123 H 164 H (75-99) mg/dL Microbiology - Last 24 Hours (Table) 11/06/17 13:45 Blood Culture - Preliminary Blood No Growth after 120 hours 11/06/17 13:25 Blood Culture - Preliminary Blood No Growth after 120 hours Assessment and Plan Assessment: Sepsis, Present on admission, secondary to Acute diverticulitis with microperforation Hyperglycemia due to uncontrolled diabetes type 2. Currently controlled Microcytic iron deficiency anemia Chronic atrial fibrillation. Rate controlled with Cardizem. On oral anticoagulant at home. Obstructive sleep apnea on CPAP at home Hyperlipidemia DVT prophylaxis with heparin subcu Plan: Continue on current medication regime ,monitoring and symptomatic treatment. Antibiotics as per infectious disease. Diet advanced yesterday, Anticoagulation to be resumed, once cleared by surgery. Discharge planning in progress for tomorrow pending surgeries clearance. The impression and plan of care has been dictated as directed. : I performed a history and examination of this patient, discussed the same with the dictator. I agree with the dictator's note ,documented as a scribe. Any additional findings or plans will be noted.
--- NOTE | 2017-11-12 13:31 | P.PN ---
Subjective Progress Note Date: 11/12/17 62-year-old female sitting up in bed patient states passing gas and did have a bowel movement. Patient states feeling better and tolerating diet. Afebrile clinically is improving. Infectious diseases recommendations reviewed plan is to finish oral Cipro and Flagyl for 2 more weeks in an outpatient setting Patients being treated for acute diverticulitis with microperforation clinically improved Objective - Vital Signs Vital signs: Vital Signs Temp 98.6 F 11/12/17 07:09 Pulse 70 11/12/17 07:09 Resp 18 11/12/17 07:09 BP 106/62 11/12/17 07:09 Pulse Ox 93 L 11/12/17 07:09 Intake & Output 11/11/17 11/12/17 11/12/17 18:59 06:59 18:59 Intake Total 1350 Output Total 550 Balance -550 1350 Weight 95.2 kg Intake: Intake, IV Titration 1150 Amount 0.9% NaCl with KCl 40 Meq 1050 /l 1,000 ml @ 100 mls/hr IV .Q10H EZRA Rx#: [id number] Aztreonam 2 gm In Sodium 100 Chloride 0.9% 100 ml @ 100 mls/hr IVPB Q8HR EZRA Rx#:[id number] Oral 200 Output: Urine 550 Other: Voiding Method Toilet Toilet Toilet # Voids 1 2 - Exam Physical exam 62-year-old female sitting up in bed reports abdominal pain significant only improved Lungs essentially clear on room air sats are 93% no cough Heart S1-S2 audible regular Abdomen obese soft nontender not distended bowel tones present states abdominal pain is gone had a bowel movement passing gas and tolerating diet Extremities no edema noted - Labs CBC & Chem 7: 11/11/17 07:36 11/11/17 07:36 Labs: Abnormal Lab Results - Last 24 Hours (Table) 11/11/17 11/11/17 11/12/17 Range/Units 16:56 19:50 11:26 POC Glucose (mg/dL) 147 H 123 H 164 H (75-99) mg/dL Microbiology - Last 24 Hours (Table) 11/06/17 13:45 Blood Culture - Preliminary Blood No Growth after 120 hours 11/06/17 13:25 Blood Culture - Preliminary Blood No Growth after 120 hours Assessment and Plan Assessment: impression present on admission diffuse abdominal pain suspect due to acute diverticulitis with microperforation Computed tomography scan of the abdomen pelvis consistent with the episode of diverticulitis obesity BMI 37 Multiple antibiotic ALLERGIES chronic atrial fibrillation on Xarelto on hold Sleep apnea with the use of CPAP therapy Persistent episodes intermittent fever Plan From a surgical perspective patient to be discharged defer to the timing to the attending Anabiotic's per infectious diseases recommendations Outpatient follow-up with Dr. Gaona DVT and GI prophylaxis Pain control Further surgical recommendations pending will follow with you Progress note dictated for Dr. currie covering on behalf of Dr. Gaona The above impression and plan of care have been discussed and directed by signing physician. Sylvia Paniagua nurse practitioner acting as scribe for signing physician.
--- NOTE | 2017-11-12 17:12 | PN ---
PROGRESS NOTE DATE OF SERVICE: 11/12/2017. REASON FOR FOLLOWUP: Diverticulitis with micro perforation. INTERVAL HISTORY: The patient is currently afebrile. She is feeling better. Breathing comfortably. Has been tolerating a regular diet. Denies any chest pain or shortness of breath or cough. No abdominal pain. No diarrhea. EXAMINATION: Blood pressure 109/71 with a pulse of 71. Temperature 98. She is 93% on room air. General description is an elderly female up in the bed in no distress. RESPIRATORY SYSTEM: Unlabored breathing. Clear to auscultation anteriorly. HEART: S1, S2. Regular rate and rhythm. ABDOMEN: Soft, no tenderness. EXTREMITIES: No edema feet. LABS: White count 6.5, blood culture has been negative. DIAGNOSTIC IMPRESSION AND PLAN: Patient with diverticulitis with microperforation. The patient at this time is on Azactam and Flagyl to finish therapy with oral Cipro and Flagyl once she is cleared for discharge from the surgical standpoint with close outpatient followup condition. MMODL / IJN: [id number] /
[2017-11-12 17:17] LABS: Glucose,Whole Blood 163 mg/dL (75-99)
[2017-11-12] MEDS: MAGNESIUM OXIDE 400 MG TAB PO SCH (17:34)
[2017-11-12] MEDS ORDERED: RIVAROXABAN 20 MG TAB PO SCH (18:30)
[2017-11-12 20:20] LABS: Glucose,Whole Blood 149 mg/dL (75-99)
[2017-11-12] MEDS: POTASSIUM CHLORIDE ER 10 MEQ TAB.ER.PRT PO SCH (20:49)
[2017-11-12] MEDS: DILTIAZEM CD 180 MG CAP.ER.24H PO SCH (20:49)
[2017-11-12] MEDS: traZODone HCL 100 MG TAB PO SCH (20:49)
[2017-11-12] MEDS: ATORVASTATIN 10 MG TAB PO SCH (20:49)
--- NOTE | 2017-11-12 23:03 | P.PN ---
Subjective Progress Note Date: 11/11/17 Principal diagnosis: Acute diverticulitis with possible perforation A 62-year-old female who was transferred out from [place]. She resides up in [place]. She apparently presented with abdominal pain and possible perforation. She's feeling much better now. Apparently she was seen by the surgeon and the surgeon thought she could move out of the ICU. She denies all other complaints other than abdominal pain. The patient apparently has a history of atrial fibrillation, diabetes, and hyperlipidemia. She's also had section hysterectomy joint replacement orthopedic procedures carpal tunnel and trigger finger. She does have a history of anxiety. She was a former smoker. She's been stable here in the intensive care unit from the respiratory status and hemodynamic status. She was transferred from [place] to the emergency room and up to the ICU. 11/06/2017 Patient says that her abdominal pain is better today. Patient was started on clear liquids. Otherwise patient is being continued on antibiotics. Currently patient is in the general medical floor. General surgery and pulmonary is following. No fever no chills. No chest pain or shortness of breath. 11/07/2017 Patient denied any worsening abdominal pain. Tolerating oral liquids. Patient developed fever last night. T-max 102.6. No diarrhea. No cough or sputum production. Planning for repeat CT abdomen if continues to be febrile. WBC 5.4. Currently afebrile. No chest pain or shortness of breath. 11/10/2017 Patient denied any chest pain or shortness of breath. Abdominal pain is improving otherwise. Patient is afebrile. Will reduce dose of Cardizem and discontinue diuretics due to hypotension. Patient will be continued on IV antibiotics in the form of metronidazole and aztreonam. No nausea vomiting. No headache or dizziness or lightheadedness. 11/11/2017 Patient is tolerating oral diet now. Abdominal pain is almost resolved. Patient is afebrile. Leukocytosis is normalized. Blood pressure is better controlled and heart rate better controlled as well patient is currently on IV antibiotics as per ID recommendations. No nausea vomiting. No other acute overnight issues. Patient is clinically overall improving. All other review of systems negative except the above Current medications reviewed Objective - Vital Signs Vital signs: Vital Signs Temp 98.1 F 11/11/17 20:00 Pulse 70 11/11/17 20:00 Resp 18 11/11/17 20:00 BP 115/76 11/11/17 20:00 Pulse Ox 93 L 11/11/17 20:00 Intake & Output 11/11/17 11/11/17 11/12/17 06:59 18:59 06:59 Intake Total 1530 550 Output Total 550 Balance 1530 -550 550 Weight 95.2 kg Intake: Intake, IV Titration 1050 350 Amount 0.9% NaCl with KCl 40 Meq 1050 350 /l 1,000 ml @ 100 mls/hr IV .Q10H EZRA Rx#: [id number] Oral 480 200 Output: Urine 550 Other: Voiding Method Toilet Toilet Toilet # Voids 1 - Exam PHYSICAL EXAMINATION: Patient is lying in the bed comfortably, no acute distress, awake alert and oriented.. HEENT: Normocephalic. Neck is supple. Pupils reactive. Nostrils clear. Oral cavity is moist. Ears reveal no drainage. Neck reveals no JVD, carotid bruits, or thyromegaly. CHEST EXAMINATION: Trachea is central. Symmetrical expansion. Bibasilar diminished air entry. Lung hankins clear to auscultation and percussion. CARDIAC: Normal S1, S2 with no gallops. No murmurs ABDOMEN: Soft. mild left lower quadrant. Bowel sounds normal. No organomegaly. No abdominal bruits. Extremities: reveal no edema. No clubbing or cyanosis Neurologically awake, alert, oriented x3 with well-coordinated movements. No focal deficits noted Skin: No rash or skin lesions. Psychiatric: Coperative. Nonsuicidal Musculoskeletal: No joint swelling or deformity. Normal range of motion. - Labs CBC & Chem 7: 11/11/17 07:36 11/11/17 07:36 Labs: Abnormal Lab Results - Last 24 Hours (Table) 11/11/17 11/11/17 11/11/17 Range/Units 07:36 16:56 19:50 Hgb 9.2 L (11.4-16.0) gm/dL Hct 30.7 L (34.0-46.0) % MCV 66.7 L (80.0-100.0) fL MCH 20.1 L (25.0-35.0) pg MCHC 30.1 L (31.0-37.0) g/dL RDW 17.1 H (11.5-15.5) % POC Glucose (mg/dL) 147 H 123 H (75-99) mg/dL Microbiology - Last 24 Hours (Table) 11/06/17 13:45 Blood Culture - Preliminary Blood No Growth after 120 hours 11/06/17 13:25 Blood Culture - Preliminary Blood No Growth after 120 hours 11/05/17 01:40 Blood Culture - Final Blood No Growth after 144 hours Assessment and Plan Assessment: Acute diverticulitis with possible perforation. Abdominal pain improving.. Hyperglycemia due to uncontrolled diabetes type 2. On metformin at home Microcytic iron deficiency anemia. will restart iron supplements upon discharge. Chronic atrial fibrillation. Rate controlled with Cardizem. On oral anticoagulant at home. Obstructive sleep apnea on CPAP at home Hyperlipidemia Hypertension. Controlled DVT prophylaxis with heparin subcu Plan: Patient will be continued on antibiotics in the form of metronidazole and aztreonam. Pulmonary and ID and surgery is following. Oral anticoagulation has been held due to possible surgical intervention. Continue with Accu-Cheks and monitor H&H. Further recommendations based on the clinical course. Time with Patient: Greater than 30
[2017-11-13] MEDS: ACETAMINOPHEN TAB 500 MG TAB PO PRN ×3 (01:11→15:05)
[2017-11-13 01:26] VITALS: RESP 16
[2017-11-13] MEDS: MORPHINE SULFATE 2 MG/ML SYRINGE IV PRN (01:26)
[2017-11-13 06:43] LABS: Glucose,Whole Blood 108 mg/dL (75-99)
[2017-11-13] MEDS: 0.9% NACL WITH KCL 40 MEQ/L 1,000 ML IV SCH (07:26)
[2017-11-13] MEDS ORDERED: PANTOPRAZOLE 40 MG TABLET PO SCH (07:30)
[2017-11-13] MEDS: AZTREONAM 2 GM in SODIUM CHLORIDE 0.9% 100 ML IVPB SCH ×2 (07:35→15:05)
[2017-11-13] MEDS: INSULIN ASPART 100 UNIT/ML 1 ML 10 ML VIAL SQ SCH ×2 (07:42→11:52)
[2017-11-13 07:51] LABS: Anisocytosis Slight; Basophils % (A) 1 %; Eosinophils # (A) 0.1 k/uL (0-0.7); Eosinophils % (A) 1 %; HGB 9.4 gm/dL (11.4-16.0); Hypochromasia Marked; Lymphocytes # (A) 1.3 k/uL (1.0-4.8); Lymphocytes % (A) 18 %; MCH 19.9 pg (25.0-35.0); MCHC 30.3 g/dL (31.0-37.0); MCV 65.7 fL (80.0-100.0); Mean Platelet Volume 6.1; Microcytosis Marked; Monocytes # (A) 0.2 k/uL (0-1.0); Monocytes % (A) 3 %; Neutrophils # (A) 5.7 k/uL (1.3-7.7); Neutrophils % (A) 76 %; Platelet Count 298 k/uL (150-450); Poikilocytosis Slight; RBC 4.72 m/uL (3.80-5.40); RDW 17.7 % (11.5-15.5); WBC 7.4 k/uL (3.8-10.6)
[2017-11-13 08:06] LABS: Anion Gap 12 mmol/L; Blood Urea Nitrogen 7 mg/dL (7-17); Calcium 8.6 mg/dL (8.4-10.2); Carbon Dioxide 22 mmol/L (22-30); Chloride 110 mmol/L (98-107); Glucose 101 mg/dL (74-99); Potassium 4.7 mmol/L (3.5-5.1); Sodium 144 mmol/L (137-145)
[2017-11-13 08:42] LABS: Poikilocytosis (M) Present
[2017-11-13 08:43] LABS: Anisocytosis (M) Present; Crenated RBC Present; RBC Fragments Present
[2017-11-13] MEDS: metroNIDAZOLE 500 MG TAB PO SCH ×2 (09:39→15:05)
[2017-11-13] MEDS: ALPRAZolam 0.5 MG TAB PO SCH ×2 (09:39→15:05)
--- NOTE | 2017-11-13 09:53 | P.PN ---
Subjective Progress Note Date: 11/13/17 62-year-old female seen at bedside this morning. Did note patient was up ambulating in the hallway with no difficulty reports tolerating a diet. Continues to report having discomfort in the lower abdomen. Did speak with infectious disease okay to discharge on Cipro and Flagyl for 10 more days. This was discussed with the patient. Patient is stating she's concerned plain Tylenol which she has been taking throughout the hospitalization will not control her pain at home IV morphine intermittently has been given this admission. Did discuss with the patient could not send the patient home on morphine plain Tylenol should be effective for pain control. As the abscess continues to improve with the antibiotics should be less abdominal pain After discussion with the patient verbalizes an understanding and does agree that plain Tylenol will work for pain control Patient is being treated for acute diverticulitis with microperforation continues to clinically improve Objective - Vital Signs Vital signs: Vital Signs Temp 98.8 F 11/13/17 01:04 Pulse 70 11/13/17 01:04 Resp 16 11/13/17 01:04 BP 108/64 11/13/17 01:04 Pulse Ox 92 L 11/13/17 01:04 Intake & Output 11/12/17 11/13/17 11/13/17 18:59 06:59 18:59 Intake Total 240 1100 Balance 240 1100 Weight 95.2 kg 95.2 kg Intake: Intake, IV Titration 1100 Amount 0.9% NaCl with KCl 40 Meq 1100 /l 1,000 ml @ 100 mls/hr IV .Q10H EZRA Rx#: [id number] Oral 240 Other: Voiding Method Toilet Toilet # Voids 1 2 - Exam Physical exam 62-year-old female appears in no acute distress has been up ambulating in the [place] Lungs essentially clear on room air sats are 93% no cough Heart S1-S2 audible regular Abdomen obese soft not distended no facial grimacing with palpitation to the abdominal wall no nausea no vomiting sitting up in bed taking a diet states abdominal discomfort improving Extremities no edema noted - Labs CBC & Chem 7: 11/13/17 06:35 11/13/17 06:35 Labs: Abnormal Lab Results - Last 24 Hours (Table) 11/12/17 11/12/17 11/12/17 Range/Units 11:26 17:14 20:09 Hgb (11.4-16.0) gm/dL Hct (34.0-46.0) % MCV (80.0-100.0) fL MCH (25.0-35.0) pg MCHC (31.0-37.0) g/dL RDW (11.5-15.5) % Chloride (98-107) mmol/L Glucose (74-99) mg/dL POC Glucose (mg/dL) 164 H 163 H 149 H (75-99) mg/dL 11/13/17 11/13/17 11/13/17 Range/Units 06:35 06:35 06:40 Hgb 9.4 L (11.4-16.0) gm/dL Hct 31.0 L (34.0-46.0) % MCV 65.7 L (80.0-100.0) fL MCH 19.9 L (25.0-35.0) pg MCHC 30.3 L (31.0-37.0) g/dL RDW 17.7 H (11.5-15.5) % Chloride 110 H (98-107) mmol/L Glucose 101 H (74-99) mg/dL POC Glucose (mg/dL) 108 H (75-99) mg/dL Microbiology - Last 24 Hours (Table) 11/06/17 13:45 Blood Culture - Final Blood No Growth after 144 hours 11/06/17 13:25 Blood Culture - Final Blood No Growth after 144 hours Assessment and Plan Assessment: impression present on admission diffuse abdominal pain suspect due to acute diverticulitis with microperforation Computed tomography scan of the abdomen pelvis consistent with the episode of diverticulitis obesity BMI 37 Multiple antibiotic ALLERGIES chronic atrial fibrillation on Xarelto on hold Sleep apnea with the use of CPAP therapy Persistent episodes intermittent fever Plan From a surgical perspective patient to be discharged defer to the timing to the attending Anabiotic's per infectious diseases recommendations 2 week course of Cipro and Flagyl Outpatient follow-up with Dr. Gaona DVT and GI prophylaxis Pain control Progress note dictated for Dr. currie covering on behalf of Dr. Gaona The above impression and plan of care have been discussed and directed by signing physician. Sylvia Paniagua nurse practitioner acting as scribe for signing physician.
[2017-11-13 09:54] VITALS: BP 108/71; PULSE 75; TEMP 98.6
[2017-11-13 11:32] LABS: Glucose,Whole Blood 174 mg/dL (75-99)
--- NOTE | 2017-11-13 13:08 | P.DS ---
Providers Date of admission: 11/05/17 02:50 Expected date of discharge: 11/13/17 Attending physician: Reena Turner Consults: 11/05/17 02:50 Consult Physician Stat Consulting Provider: Virgil Lizama Consult Reason/Comments: Acute diverticulitis with perforation Do you want consulting provider notified?: Yes 11/05/17 07:15 Consult Physician Routine Consulting Provider: Reena Dasilva Consult Reason/Comments: Medical management Do you want consulting provider notified?: Yes 11/05/17 09:02 Consult Physician Stat Consulting Provider: Piedad Niño Consult Reason/Comments: acute diverticulitis with perforation Do you want consulting provider notified?: Yes Primary care physician: Roque Howe Hospital Course: Final Diagnoses: Sepsis, Present on admission, secondary to Acute diverticulitis with microperforation Hyperglycemia due to uncontrolled diabetes type 2. Currently controlled Microcytic iron deficiency anemia Chronic atrial fibrillation. Rate controlled with Cardizem. On oral anticoagulant at home. Obstructive sleep apnea on CPAP at home Hyperlipidemia Hospital course:A 62-year-old female who was transferred out from [place]. She resides up in [place]. She apparently presented with abdominal pain and possible perforation. She's feeling much better now. Apparently she was seen by the surgeon and the surgeon thought she could move out of the ICU. She denies all other complaints other than abdominal pain. The patient apparently has a history of atrial fibrillation, diabetes, and hyperlipidemia. She's also had section hysterectomy joint replacement orthopedic procedures carpal tunnel and trigger finger. She does have a history of anxiety. She was a former smoker. She's been stable here in the intensive care unit from the respiratory status and hemodynamic status. She was transferred from [place] to the emergency room and up to the ICU. Evaluated by general surgery, pulmonary and infectious disease.Abdominal/pelvis CT noted; consistent with diverticulitis, improving abscess, per surgery's review of film.maintained on IV antibiotics as per infectious disease and gentle IV fluid hydration. Significant clinical improvement. No surgery recommended at this time with clearance to resume anticoagulation as per surgery.Cleared by all consults for discharge. Patient is being discharged home in stable condition with guarded prognosis. Exam General:Patient is sitting up in the bed, no acute distress, awake alert and oriented. CHEST EXAMINATION: Trachea is central. Symmetrical expansion. Bibasilar diminished air entry. Lung hankins clear to auscultation and percussion. CARDIAC: Normal S1, S2 with no gallops. No murmurs ABDOMEN: Soft. Nondistended, no abdominal pain. Bowel sounds normal. Neurologically No focal deficits noted The impression and plan of care has been dictated as directed. : I performed a history and examination of this patient, discussed the same with the dictator. I agree with the dictator's note ,documented as a scribe. Any additional findings or plans will be noted. Time taken: 35 minutes Patient Condition at Discharge: Stable Plan - Discharge Summary Discharge Rx Participant: Yes New Discharge Prescriptions: New Ciprofloxacin HCl [Cipro] 500 mg PO BID #20 tablet Diltiazem Cd [Cardizem CD] 180 mg PO HS #30 cap.er.24h metroNIDAZOLE [Flagyl] 500 mg PO TID #30 tab Pantoprazole [Protonix] 40 mg PO AC-BRKFST #15 tablet. Acetaminophen Tab [Tylenol Tab] 650 mg PO Q6H PRN #1 tablet PRN Reason: Pain Continue Ferrous Sulfate [Iron (65 MG Elemental)] 325 mg PO PC-SUPPER Magnesium 250 mg PO PC-SUPPER metFORMIN HCL [metFORMIN HCL ER] 1,000 mg PO BID-W/MEALS Simvastatin [Zocor] 20 mg PO HS Rivaroxaban [Xarelto] 20 mg PO PC-SUPPER ALPRAZolam [Xanax] 0.5 mg PO TID traZODone HCL 200 mg PO HS Discontinued Diltiazem HCl [Diltiazem 24Hr ER] 360 mg PO HS Discharge Medication List ALPRAZolam [Xanax] 0.5 mg PO TID 11/05/17 [History] Ferrous Sulfate [Iron (65 MG Elemental)] 325 mg PO PC-SUPPER 11/05/17 [History] Magnesium 250 mg PO PC-SUPPER 11/05/17 [History] Rivaroxaban [Xarelto] 20 mg PO PC-SUPPER 11/05/17 [History] Simvastatin [Zocor] 20 mg PO HS 11/05/17 [History] metFORMIN HCL [metFORMIN HCL ER] 1,000 mg PO BID-W/MEALS 11/05/17 [History] traZODone HCL 200 mg PO HS 11/05/17 [History] Acetaminophen Tab [Tylenol Tab] 650 mg PO Q6H PRN #1 tablet 11/13/17 [Rx] Ciprofloxacin HCl [Cipro] 500 mg PO BID #20 tablet 11/13/17 [Rx] Diltiazem Cd [Cardizem CD] 180 mg PO HS #30 cap.er.24h 11/13/17 [Rx] Pantoprazole [Protonix] 40 mg PO AC-BRKFST #15 tablet. 11/13/17 [Rx] metroNIDAZOLE [Flagyl] 500 mg PO TID #30 tab 11/13/17 [Rx] Follow up Appointment(s)/Referral(s): Valdemar Gaona MD [Medical Doctor] - 12/05/17 1:30 pm (Need Prior Authroazation from Primary Care Physcian) Piedad Niño MD [STAFF PHYSICIAN] - 11/22/17 9:45 am Roque Howe MD [Primary Care Provider] - 3 Days Ambulatory/Diagnostic Orders: Complete Blood Count w/diff [LAB.AMB] Time Frame: 3 Days, Location: None Selected Activity/Diet/Wound Care/Special Instructions: Demadex, potassium on hold, re-eval with PCP at F/U in 3 days. DIet: COnsist. carb activity: limited till F/U Tylenol rec. for pain management as per surgery
--- NOTE | 2017-11-13 14:34 | PN ---
PROGRESS NOTE DATE OF SERVICE: 11/13/2017. REASON FOR FOLLOWUP: Acute diverticulitis with microperforation. INTERVAL HISTORY: The patient is currently afebrile. She has been breathing comfortably. She has been complaining of up pain medication has been cut back to Tylenol and is not controlling her pain, though the patient denies any nausea, no vomiting. No new diarrhea. EXAMINATION: Blood pressure 130/74 with a pulse of 95, temperature 98.6. She is 92% on room air. General description is a middle-aged female up in the bed in no distress. Respiratory system: Unlabored breathing. Clear to auscultation anteriorly. Heart S1, S2. Regular rate and rhythm. Abdomen soft. Extremities: No edema of the feet. LABS: Hemoglobin 9.4, white count 7.4 with a BUN of 7, creatinine 0.66. DIAGNOSTIC IMPRESSION AND PLAN: Patient with acute diverticulitis with microperforation. The patient received about 8 days of IV antibiotic therapy. She will be given 8 to 10 days of oral Cipro and Flagyl with close outpatient followup. Pain management . Continue supportive care. MMODL / IJN: [id number] /
== END 2017-11-13 17:10 | disposition home or self-care (01) | DRG 872 ==
LOC: EC 01:07 → 6ICU 02:50 → 5MS5E 22:15 → 3SUR 11-09 00:44
PROVIDERS: ADMIT Surgery; ATTEND Hospitalist
DX: A41.9 Sepsis, unspecified organism (principal); K57.20 Diverticulitis of large intestine with perforation and abscess without bleeding; E11.65 Type 2 diabetes mellitus with hyperglycemia; D50.9 Iron deficiency anemia, unspecified; I48.2 Chronic atrial fibrillation; G47.33 Obstructive sleep apnea (adult) (pediatric); B00.1 Herpesviral vesicular dermatitis; E66.9 Obesity, unspecified; I10 Essential (primary) hypertension; F41.9 Anxiety disorder, unspecified; E78.5 Hyperlipidemia, unspecified; Z99.89 Dependence on other enabling machines and devices; Z68.37 Body mass index [BMI] 37.0-37.9, adult; Z90.710 Acquired absence of both cervix and uterus; Z88.1 Allergy status to other antibiotic agents; Z88.0 Allergy status to penicillin; Z98.890 Other specified postprocedural states; Z87.891 Personal history of nicotine dependence; Z79.01 Long term (current) use of anticoagulants; Z79.899 Other long term (current) drug therapy; Z79.84 Long term (current) use of oral hypoglycemic drugs
CPT/HCPCS: 36415; 74022; 74177; 80048; 80053; 81003; 83036; 83540; 83550; 83605; 83735; 84100; 84132; 85025; 87040; 94660; 96361; 96365; 96367; 96375; 99285